=== PATIENT | female | born 1990 | race Caucasian/White ===

== ENCOUNTER → 2017-04-18 | Outpatient (CLI) | payer OTHER ==
--- NOTE | 2017-04-18 10:08 | USB ---
Reason for exam: clinical finding. History: Family history of breast cancer in maternal grandmother. Benign US LT VAD breast biopsy of the left breast, December 06, 2011. Benign US LT VAD breast biopsy of the left breast, December 06, 2011. Indicated problem(s): lump or thickening in the right breast. Physical Findings: Nurse did not find any significant physical abnormalities on exam. US Breast RT Right breast ultrasound includes all four quadrants, the retroareolar region and axilla. Finding demonstrates a 0.6 x 0.3 x 0.6cm oval, cystic lesion at 11 o'clock. Overall fibrocystic changes. These results were verbally communicated with the patient and result sheet given to the patient on 04/18/17. ASSESSMENT: Benign, BI-RAD 2 RECOMMENDATION: Clinical management. Manage patient on a clinical basis.
== END | disposition home or self-care (01) ==
LOC: RADUSWWP 08:47
PROVIDERS: ATTEND Family Medicine
DX: Z01.419 Encounter for gynecological examination (general) (routine) without abnormal findings (principal); N63.11 Unspecified lump in the right breast, upper outer quadrant

== ENCOUNTER → 2018-06-17 | Outpatient (CLI) | payer MEDICAID ==
--- NOTE | 2018-06-17 11:13 | MM ---
Reason for exam: clinical finding. History: Patient is nulliparous. Family history of breast cancer in maternal grandmother at age 65. Benign US LT VAD breast biopsy of the left breast, December 06, 2011. Benign US LT VAD breast biopsy of the left breast, December 06, 2011. Taking hormonal contraceptives beginning at age 14. Physical Findings: Nurse did not find any significant physical abnormalities on exam. MG 3D Diag Mammo W/Cad MONA Bilateral CC and MLO view(s) were taken. XCCL view(s) were taken of the left breast. Prior study comparison: April 18, 2017, right breast US breast RT. March 18, 2014, right breast US breast RT. The breast tissue is heterogeneously dense. This may lower the sensitivity of mammography. No suspicious abnormality. Right post biopsy change lower inner quadrant at middle depth from excisional biopsy. These results were verbally communicated with the patient and result sheet given to the patient on 06/17/18. ASSESSMENT: Benign, BI-RAD 2 RECOMMENDATION: Routine screening mammogram of both breasts at age 39. (or sooner if clinically indicated)
--- NOTE | 2018-06-17 11:16 | USB ---
Reason for exam: clinical finding. History: Patient is nulliparous. Family history of breast cancer in maternal grandmother at age 65. Benign US LT VAD breast biopsy of the left breast, December 06, 2011. Benign US LT VAD breast biopsy of the left breast, December 06, 2011. Taking hormonal contraceptives beginning at age 14. US Breast RT Right complete breast ultrasound includes all four quadrants, the retroareolar region and axilla. Finding demonstrates a 5 x 3 x 5mm oval lesion too small to characterize at 12 o'clock although cystic with increased through transmission, a 4 x 2 x 4mm oval, cystic lesion at 2 o'clock, a 5 x 3 x 5mm oval, mixed lesion at 11 o'clock, complicated cyst, and a 5 x 2 x 4mm oval, mixed lesion at 11 o'clock, complicated cyst. These results were verbally communicated with the patient and result sheet given to the patient on 06/17/18. ASSESSMENT: Benign, BI-RAD 2 RECOMMENDATION: Routine screening mammogram of both breasts at age 39. (or sooner if clinically indicated)
== END | disposition home or self-care (01) ==
LOC: RADMAMWWP 07:34
PROVIDERS: ATTEND Family Medicine
DX: N64.4 Mastodynia (principal); N63.10 Unspecified lump in the right breast, unspecified quadrant
CPT/HCPCS: 77062; 77066

== ENCOUNTER → 2020-04-17 | Outpatient (CLI) | payer MEDICAID | END | disposition home or self-care (01) | LOC: LABMAIN 01:08 | PROVIDERS: ATTEND Emergency Medicine | DX: Z53.9 Procedure and treatment not carried out, unspecified reason (principal) ==

== ENCOUNTER → 2020-07-23 | Outpatient (CLI) | payer MEDICAID | END | disposition home or self-care (01) | LOC: LABMAIN 23:59 | PROVIDERS: ATTEND Emergency Medicine | DX: Z20.822 Contact with and (suspected) exposure to COVID-19 (principal) | CPT/HCPCS: 87635 ==

== ENCOUNTER 2020-08-07 17:32 | Emergency (ER) | payer MEDICAID ==
[2020-08-07] MEDS ORDERED: SODIUM CHLORIDE 0.9% 2,000 ML IV STA (18:20)
[2020-08-07] MEDS ORDERED: ONDANSETRON 4 MG/2 ML VIAL IVP STA (18:20)
[2020-08-07] MEDS ORDERED: METOCLOPRAMIDE 5 MG/ML 2 ML VIAL IVP STA (18:25)
[2020-08-07] MEDS ORDERED: SCOPOLAMINE 1.5MG/72HR PATCH TRANSDERM STA (18:29)
[2020-08-07 18:45] LABS: Basophils # (A) 0.2 k/uL (0-0.2); Basophils % (A) 1 %; Eosinophils # (A) 0.2 k/uL (0-0.7); Eosinophils % (A) 1 %; HCT 47.8 % (34.0-46.0); HGB 16.8 gm/dL (11.4-16.0); Lymphocytes # (A) 1.9 k/uL (1.0-4.8); Lymphocytes % (A) 15 %; MCHC 35.1 g/dL (31.0-37.0); MCV 88.3 fL (80.0-100.0); Monocytes # (A) 1.1 k/uL (0-1.0); Monocytes % (A) 9 %; Neutrophils # (A) 9.1 k/uL (1.3-7.7); Neutrophils % (A) 71 %; Platelet Count 298 k/uL (150-450); RBC 5.41 m/uL (3.80-5.40); RDW 11.9 % (11.5-15.5); WBC 12.8 k/uL (3.8-10.6)
[2020-08-07 18:53] LABS: Calcium 10.5 mg/dL (8.4-10.2); Potassium 3.8 mmol/L (3.5-5.1); Total Bilirubin 0.6 mg/dL (0.2-1.3); Total Protein 10.1 g/dL (6.3-8.2)
--- NOTE | 2020-08-07 18:53 | ED ---
Nausea/Vomiting/Diarrhea HPI - General Chief complaint: Nausea/Vomiting/Diarrhea Stated complaint: nausea/vomiting Time Seen by Provider: 08/07/20 18:19 Source: patient Mode of arrival: ambulatory Limitations: no limitations - History of Present Illness Initial comments: This patient is a 29-year-old woman who presents to be evaluated for suspected dehydration. She states she has been having intractable nausea and vomiting for the past 4-5 days. She states that she was diagnosed with covid infection approximately 9 days ago. She is also having fever and chills, headache, myalgias and a little bit of cough. No dyspnea. The patient previously has had a scopolamine which seems to help the symptoms. She also tried ondansetron which did not seem to help. There has been no hematemesis or coffee-ground vomiting. No bloody or dark tarry stools. She notes she is urinating less frequently and it seems a little more concentrated. MD complaint: nausea, vomiting -: days(s) Description of Vomiting: food contents Associated Abdominal Pain: No Radiation: none Severity scale (1-10): 0 Consistency: constant Improves with: none Worsens with: none Associated Symptoms: myalgias, fever/chills, headaches, malaise, nausea/vomiting - Related Data Previous Rx's Medication Instructions Recorded Lidocaine Viscous [Xylocaine 5 ml PO Q3HR PRN #100 ml 08/07/20 Viscous 2%] Promethazine [Phenergan] 25 mg PO Q6HR PRN #12 tablet 08/07/20 Scopolamine 1.5MG/72Hr Patch 1 patch TRANSDERM Q72H #6 patch 08/07/20 [TransDerm Scop] Allergies Allergy/AdvReac Type Severity Reaction Status Date / Time No Known Allergies Allergy Verified 08/07/20 17:39 Review of Systems ROS Statement: Those systems with pertinent positive or pertinent negative responses have been documented in the HPI. ROS Other: All systems not noted in ROS Statement are negative. Constitutional: Denies: fever, chills Respiratory: Denies: cough, dyspnea Cardiovascular: Denies: chest pain, palpitations, edema, syncope Endocrine: Reports: fatigue Gastrointestinal: Reports: nausea, vomiting. Denies: abdominal pain, diarrhea, constipation, hematemesis, melena, hematochezia Genitourinary: Denies: dysuria, hematuria Musculoskeletal: Reports: myalgia. Denies: back pain Skin: Denies: rash Neurological: Reports: headache. Denies: weakness, numbness, paresthesias Past Medical History Past Medical History: No Reported History History of Any Multi-Drug Resistant Organisms: None Reported Additional Past Surgical History / Comment(s): RIGHT LUMPECTOMY Past Psychological History: No Psychological Hx Reported Smoking Status: Never smoker Past Alcohol Use History: Rare Past Drug Use History: None Reported General Exam Limitations: no limitations General appearance: alert, in no apparent distress Head exam: Present: atraumatic, normocephalic Eye exam: Present: normal appearance. Absent: scleral icterus, conjunctival injection ENT exam: Present: mucous membranes dry Neck exam: Present: normal inspection Respiratory exam: Present: normal lung sounds bilaterally. Absent: respiratory distress, wheezes, rales, rhonchi, stridor Cardiovascular Exam: Present: normal rhythm, tachycardia, normal heart sounds. Absent: systolic murmur, diastolic murmur, rubs, gallop GI/Abdominal exam: Present: soft. Absent: distended, tenderness, guarding, rebound, rigid, mass Extremities exam: Present: normal inspection, normal capillary refill. Absent: pedal edema, calf tenderness Back exam: Present: normal inspection. Absent: CVA tenderness (R), CVA tenderness (L) Neurological exam: Present: alert Skin exam: Present: warm, dry, intact, normal color. Absent: rash Course Vital Signs 08/07/20 08/07/20 08/07/20 17:37 18:43 19:18 Temperature 98.8 F Pulse Rate 148 H 125 H 114 H Respiratory 26 H 22 20 Rate Blood Pressure 114/84 122/92 109/71 O2 Sat by Pulse 95 95 97 Oximetry 08/07/20 08/07/20 08/07/20 20:45 21:36 22:20 Temperature 100.5 F H 100.8 F H Pulse Rate 111 H 113 H 106 H Respiratory 20 18 Rate Blood Pressure 99/76 107/69 O2 Sat by Pulse 97 Oximetry Medical Decision Making - Lab Data Result diagrams: 08/07/20 18:34 08/07/20 18:34 Lab Results 08/07/20 08/07/20 Range/Units 18:34 18:34 WBC 12.8 H (3.8-10.6) k/uL RBC 5.41 H (3.80-5.40) m/uL Hgb 16.8 H (11.4-16.0) gm/dL Hct 47.8 H (34.0-46.0) % MCV 88.3 (80.0-100.0) fL MCH 31.0 (25.0-35.0) pg MCHC 35.1 (31.0-37.0) g/dL RDW 11.9 (11.5-15.5) % Plt Count 298 (150-450) k/uL MPV 8.0 Neutrophils % 71 % Lymphocytes % 15 % Monocytes % 9 % Eosinophils % 1 % Basophils % 1 % Neutrophils # 9.1 H (1.3-7.7) k/uL Lymphocytes # 1.9 (1.0-4.8) k/uL Monocytes # 1.1 H (0-1.0) k/uL Eosinophils # 0.2 (0-0.7) k/uL Basophils # 0.2 (0-0.2) k/uL Sodium 137 (137-145) mmol/L Potassium 3.8 (3.5-5.1) mmol/L Chloride 96 L (98-107) mmol/L Carbon Dioxide 20 L (22-30) mmol/L Anion Gap 21 mmol/L BUN 50 H (7-17) mg/dL Creatinine 2.69 H (0.52-1.04) mg/dL Est GFR (CKD-EPI)AfAm 26 (>60 ml/min/1.73 sqM) Est GFR (CKD-EPI)NonAf 23 (>60 ml/min/1.73 sqM) Glucose 111 H (74-99) mg/dL Calcium 10.5 H (8.4-10.2) mg/dL Total Bilirubin 0.6 (0.2-1.3) mg/dL AST 21 (14-36) U/L ALT 15 (4-34) U/L Alkaline Phosphatase 85 (38-126) U/L Total Protein 10.1 H (6.3-8.2) g/dL Albumin 5.0 (3.5-5.0) g/dL Amylase 118 H (30-110) U/L Lipase 607 H (23-300) U/L - EKG Data -: EKG Interpreted by Oh EKG shows normal: sinus rhythm, axis (Normal), intervals (Normal), QRS complexes (Normal), ST-T waves (Normal) Rate: tachycardia (Rate 106 bpm) Interpretation: normal EKG Disposition Clinical Impression: COVID-19, Vomiting and diarrhea, Dehydration, Acute kidney injury Disposition: HOME SELF-CARE Condition: Fair Instructions (If sedation given, give patient instructions): Coronavirus Disease 2019 (COVID-19), Acute Kidney Injury (DC), Acute Nausea and Vomiting (ED) Prescriptions: Promethazine [Phenergan] 25 mg PO Q6HR PRN #12 tablet PRN Reason: Vomiting Scopolamine 1.5MG/72Hr Patch [TransDerm Scop] 1 patch TRANSDERM Q72H #6 patch Lidocaine Viscous [Xylocaine Viscous 2%] 5 ml PO Q3HR PRN #100 ml PRN Reason: Sore Throat Is patient prescribed a controlled substance at d/c from ED?: No Referrals: None,Stated [Primary Care Provider] - 1-2 days
--- NOTE | 2020-08-07 19:08 | XR ---
EXAMINATION TYPE: XR chest 2V DATE OF EXAM: 08/07/2020 COMPARISON: NONE HISTORY: Nausea and vomiting TECHNIQUE: 2 views FINDINGS: There is airspace infiltrate posteriorly in both lower lobes. Upper lobes appear clear of i nfiltrate. Heart and mediastinum are normal. There are no hilar masses. There are chest leads. There is no pleural effusion. IMPRESSION: There is some patchy bilateral lower lobe pneumonia.
[2020-08-07] MEDS ORDERED: SODIUM CHLORIDE 0.9% 1,000 ML IV ONE (20:02)
[2020-08-07] MEDS ORDERED: ACETAMINOPHEN TAB 325 MG TAB PO STA (20:25)
[2020-08-07] MEDS ORDERED: MAG HYDROX/AL HYDROX/SIMETH 30 ML, HYOSCYAMINE ELIXIR 10 ML, LIDOCAINE VISCOUS 2% 10 ML PO STA ×3 (20:37)
[2020-08-07 21:37] VITALS: RESP 18
[2020-08-07 23:03] VITALS: BP 109/70; PULSE 96; TEMP 100.2
== END 2020-08-07 23:36 | disposition home or self-care (01) ==
LOC: EC 17:32
DX: U07.1 COVID-19 (principal); E86.0 Dehydration; N17.9 Acute kidney failure, unspecified
CPT/HCPCS: 36415; 93005; 80053; 82150; 83690; 85025; 71046; 99284; 96374; 96375; 96361 ×5; J2765

== ENCOUNTER → 2021-02-26 | Outpatient (CLI) | payer MEDICAID | END | disposition home or self-care (01) | LOC: LABMAIN 06:01 | PROVIDERS: ATTEND Emergency Medicine | DX: U07.1 COVID-19 (principal) | CPT/HCPCS: 36415; 86769 ==

== ENCOUNTER → 2021-03-30 | Outpatient (CLI) | payer MEDICAID | END | disposition home or self-care (01) | LOC: LABMAIN 21:46 | PROVIDERS: ATTEND Emergency Medicine | DX: Z20.822 Contact with and (suspected) exposure to COVID-19 (principal); R05.9 Cough, unspecified | CPT/HCPCS: 87635 ==

== ENCOUNTER → 2021-03-31 | Outpatient (CLI) | payer MEDICAID, OTHER | END | disposition home or self-care (01) | LOC: LABWHC1 21:30 | PROVIDERS: ATTEND Emergency Medicine | DX: Z20.822 Contact with and (suspected) exposure to COVID-19 (principal) | CPT/HCPCS: 87635 ==

== ENCOUNTER → 2021-05-10 | Outpatient (CLI) | payer MEDICAID, OTHER | END | disposition home or self-care (01) | LOC: LABWHC1 10:48 | PROVIDERS: ATTEND Emergency Medicine | DX: Z20.822 Contact with and (suspected) exposure to COVID-19 (principal) | CPT/HCPCS: 87635 ==

== ENCOUNTER 2021-09-24 06:54 | Emergency (ER) | payer MEDICAID ==
[2021-09-24 07:07] VITALS: RESP 18
[2021-09-24] MEDS ORDERED: ONDANSETRON 4 MG/2 ML VIAL IVP STA (07:23)
[2021-09-24] MEDS ORDERED: SODIUM CHLORIDE 0.9% 1,000 ML IV ONE (07:26)
--- NOTE | 2021-09-24 07:33 | ED ---
General Adult HPI - General Chief complaint: Abdominal Pain Stated complaint: Abdominal pain Time Seen by Provider: 09/24/21 06:58 Source: patient Mode of arrival: ambulatory Limitations: no limitations - History of Present Illness Initial comments: Dictation was produced using [employer] dictation software. please excuse any grammatical, word or spelling errors. 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 Patient states that over the last 2-3 weeks she's been having these bouts of right upper quadrant attacks. Patient denies any history of surgery. No history of cholecystectomy. Patient states that she would have these episodes that would be severe causing her to double over and have bouts of nonbilious nonbloody emesis. Patient states the pain is localized right upper quadrant. Nonradiating. Patient denies any constitutional symptoms however in triage she did have a 99.0. She states that these episodes last for approximately 6 hours at the time. At the bedside currently she is asymptomatic. Patient's symptoms are not associated with food. The ROS documented in this emergency department record has been reviewed and confirmed by me. Those systems with pertinent positive or negative responses have been documented in the HPI. All other systems are other negative and/or noncontributory. PHYSICAL EXAM: General Impression: Alert and oriented x3, not in acute distress HEENT: Normocephalic atraumatic, extra-ocular movements intact, pupils equal and reactive to light bilaterally, mucous membranes moist. Cardiovascular: Heart regular rate and rhythm Chest: Able to complete full sentences, no retractions, no tachypnea Abdomen: abdomen soft, non-tender, negative Snyder sign, non-distended, no organomegaly Musculoskeletal: Pulses present and equal in all extremities, no peripheral edema Motor: no focal deficits noted Neurological: CN II-XII grossly intact, no focal motor or sensory deficits noted Skin: Intact with no visualized rashes Psych: Normal affect and mood ED course: 30-year-old female presents to the emergency department for right upper quadrant episodic pain stated with nausea and vomiting. She would have these episodes that last for several hours however she would experience several hours of no symptoms in between. Patient denies . Denies any urinary symptoms. Laboratory evaluation obtained. CBC shows leukocytosis of 18.0. Metabolic panel shows findings that are within acceptable limits. AST is 202, ALT is 92. Abdominal ultrasound shows cholelithiasis, gallbladder distention wall thickening. Sonographic Snyder's is negative. Mild hepatomegaly. Patient reevaluated at bedside found to be in stable medical condition. Patient reevaluated at 8:20 AM: She denies any symptoms currently. Patient is afebrile. Repeat abdominal exam is unremarkable. Patient observed in the emergency department for 2 hours in 2 minutes. Patient is asymptomatic upon reevaluation at 9:00 AM. Patient will be discharged with strict return precautions. She is advised to contact a general surgeon to have outpatient management of cholelithiasis. - Related Data Previous Rx's Medication Instructions Recorded Lidocaine Viscous [Xylocaine 5 ml PO Q3HR PRN #100 ml 08/07/20 Viscous 2%] Promethazine [Phenergan] 25 mg PO Q6HR PRN #12 tablet 08/07/20 Scopolamine 1 mg/72 Hr Patch 1 patch TRANSDERM Q72H #6 patch 08/07/20 [TransDerm Scop] HYDROcodone/APAP 5-325MG [Irma 1 tab PO Q6HR PRN 3 Days #12 tab 09/24/21 5-325] Promethazine [Phenergan] 25 mg PO Q6H PRN 3 Days #24 tablet 09/24/21 Allergies Allergy/AdvReac Type Severity Reaction Status Date / Time No Known Allergies Allergy Verified 09/24/21 07:07 Review of Systems ROS Statement: Those systems with pertinent positive or pertinent negative responses have been documented in the HPI. ROS Other: All systems not noted in ROS Statement are negative. Past Medical History Past Medical History: No Reported History History of Any Multi-Drug Resistant Organisms: None Reported Additional Past Surgical History / Comment(s): RIGHT LUMPECTOMY Past Psychological History: No Psychological Hx Reported Smoking Status: Never smoker Past Alcohol Use History: Rare Past Drug Use History: None Reported General Exam Limitations: no limitations Course Vital Signs 09/24/21 07:05 Temperature 99.0 F Pulse Rate 112 H Respiratory 18 Rate Blood Pressure 122/82 O2 Sat by Pulse 98 Oximetry Medical Decision Making - Lab Data Result diagrams: 09/24/21 07:28 09/24/21 07:28 Lab Results 09/24/21 09/24/21 Range/Units 07:28 07:28 WBC 18.0 H (3.8-10.6) k/uL RBC 4.35 (3.80-5.40) m/uL Hgb 13.4 (11.4-16.0) gm/dL Hct 40.0 (34.0-46.0) % MCV 92.0 (80.0-100.0) fL MCH 30.8 (25.0-35.0) pg MCHC 33.5 (31.0-37.0) g/dL RDW 12.8 (11.5-15.5) % Plt Count 385 (150-450) k/uL MPV 7.1 Neutrophils % 75 % Lymphocytes % 17 % Monocytes % 6 % Eosinophils % 0 % Basophils % 0 % Neutrophils # 13.6 H (1.3-7.7) k/uL Lymphocytes # 3.0 (1.0-4.8) k/uL Monocytes # 1.0 (0-1.0) k/uL Eosinophils # 0.1 (0-0.7) k/uL Basophils # 0.1 (0-0.2) k/uL Sodium 139 (137-145) mmol/L Potassium 4.2 (3.5-5.1) mmol/L Chloride 106 (98-107) mmol/L Carbon Dioxide 25 (22-30) mmol/L Anion Gap 8 mmol/L BUN 13 (7-17) mg/dL Creatinine 0.77 (0.52-1.04) mg/dL Est GFR (CKD-EPI)AfAm >90 (>60 ml/min/1.73 sqM) Est GFR (CKD-EPI)NonAf >90 (>60 ml/min/1.73 sqM) Glucose 90 (74-99) mg/dL Calcium 9.3 (8.4-10.2) mg/dL Total Bilirubin 1.1 (0.2-1.3) mg/dL Conjugated Bilirubin 0.0 (0.0-0.3) mg/dL Unconjugated Bilirubin 0.7 (0.0-1.1) mg/dL Delta Bilirubin 0.4 H (0.0-0.2) mg/dL AST 202 H (14-36) U/L ALT 92 H (4-34) U/L Alkaline Phosphatase 60 (38-126) U/L Total Protein 8.1 (6.3-8.2) g/dL Albumin 4.6 (3.5-5.0) g/dL Lipase 152 (23-300) U/L Disposition Clinical Impression: Symptomatic cholelithiasis Disposition: HOME SELF-CARE Condition: Fair Instructions (If sedation given, give patient instructions): Gallstones (ED) Additional Instructions: Seek immediate medical attention with worsening pain especially if is associated with fever. There is a chance that your symptomatology could reflect acute cholecystitis. Prescriptions: HYDROcodone/APAP 5-325MG [Irma 5-325] 1 tab PO Q6HR PRN 3 Days #12 tab PRN Reason: Severe Pain Promethazine [Phenergan] 25 mg PO Q6H PRN 3 Days #24 tablet PRN Reason: Nausea And Vomiting Is patient prescribed a controlled substance at d/c from ED?: Yes If prescribed controlled substance>3 days was MAPS reviewed?: Prescribed <3 Days Referrals: Brown Garcia MD [Medical Doctor] - 1-2 days
[2021-09-24 07:50] LABS: ALT 92 U/L (4-34); AST 202 U/L (14-36); African American GFR (CKD) >90 (>60 ml/min/1.73 sqM); Albumin 4.6 g/dL (3.5-5.0); Alkaline Phosphatase 60 U/L (38-126); Anion Gap 8 mmol/L; Bilirubin, Delta 0.4 mg/dL (0.0-0.2); Bilirubin,Unconjugated 0.7 mg/dL (0.0-1.1); Blood Urea Nitrogen 13 mg/dL (7-17); Calcium 9.3 mg/dL (8.4-10.2); Carbon Dioxide 25 mmol/L (22-30); Chloride 106 mmol/L (98-107); Glucose 90 mg/dL (74-99); Lipase 152 U/L (23-300); Non-African American GFR(CKD) >90 (>60 ml/min/1.73 sqM); Potassium 4.2 mmol/L (3.5-5.1); Sodium 139 mmol/L (137-145); Total Bilirubin 1.1 mg/dL (0.2-1.3); Total Protein 8.1 g/dL (6.3-8.2)
[2021-09-24 08:00] LABS: Basophils # (A) 0.1 k/uL (0-0.2); Basophils % (A) 0 %; Eosinophils # (A) 0.1 k/uL (0-0.7); Eosinophils % (A) 0 %; HGB 13.4 gm/dL (11.4-16.0); Lymphocytes % (A) 17 %; MCH 30.8 pg (25.0-35.0); MCHC 33.5 g/dL (31.0-37.0); Mean Platelet Volume 7.1; Monocytes % (A) 6 %; Neutrophils # (A) 13.6 k/uL (1.3-7.7); Neutrophils % (A) 75 %; Platelet Count 385 k/uL (150-450); RBC 4.35 m/uL (3.80-5.40); RDW 12.8 % (11.5-15.5)
--- NOTE | 2021-09-24 08:15 | US ---
EXAMINATION TYPE: US abdomen limited DATE OF EXAM: 09/24/2021 COMPARISON: NONE CLINICAL HISTORY: ruq pain. epigastric pain x 2 weeks with nausea and vomiting. EXAM MEASUREMENTS: Liver Length: 18.2 cm Gallbladder Wall: 0.14 cm CBD: 0.4 cm Right Kidney: 11.3 x 4.7 x 4.7 cm Pancreas: Obscured by bowel gas Liver: Mildly enlarged. No focal hepatic mass. Gallbladder: Multiple mobile stones were seen. Largest measuring 1.3 x 1.4 x 1.0 cm Evidence for sonographic Snyder's sign: No CBD: 5 mm Right Kidney: No cortical mass or thinning. No evidence of right renal calculi or hydronephrosis. No perinephric fluid collections. IMPRESSION: 1. Cholelithiasis, gallbladder distention, wall thickening or extrahepatic biliary ductal dilatation. Sonographic Snyder's sign is negative. 2. Mild hepatomegaly
[2021-09-24 09:04] VITALS: BP 134/86; PULSE 86; TEMP 98.7
== END 2021-09-24 09:03 | disposition home or self-care (01) ==
LOC: EC 06:54
DX: K80.20 Calculus of gallbladder without cholecystitis without obstruction (principal)
CPT/HCPCS: 36415; 80053; 82248; 83690; 85025; 76705; 99284; 96374; 96361; J2405

== ENCOUNTER → 2021-09-26 | Outpatient (CLI) | payer MEDICAID ==
[2021-09-26 22:34] LABS: ALT 49 U/L (8-44); AST 22 U/L (13-35); African American GFR (CKD) 116.3 (60.0-200.0); Albumin 4.5 g/dL (3.8-4.9); Albumin/Globulin Ratio 1.55 (1.60-3.17); Alkaline Phosphatase 59 U/L (41-126); BUN/Creat Ratio 16.03 Ratio (12.00-20.00); Blood Urea Nitrogen 12.6 mg/dL (9.0-27.0); Calcium 9.4 mg/dL (8.7-10.3); Carbon Dioxide 23.6 mmol/L (20.0-27.5); Chloride 103 mmol/L (96-109); Globulin 2.9 g/dL (1.6-3.3); Glucose 87 mg/dL (70-110); Non-African American GFR(CKD) 100.4 (60.0-200.0); Sodium 138 mmol/L (135-145); Total Bilirubin <0.15 mg/dL (0.30-1.20); Total Protein 7.4 g/dL (6.2-8.2)
[2021-09-26 22:44] LABS: Basophils # (A) 0.05 X 10*3/uL (0.00-0.10); Basophils % (A) 0.6 %; Eosinophils # (A) 0.22 X 10*3/uL (0.04-0.35); Eosinophils % (A) 2.6 %; HCT 38.2 % (37.2-46.3); Immature Grans, Automated 0.2 %; Lymphocytes # (A) 2.58 X 10*3/uL (0.90-5.00); MCH 29.1 pg (27.0-32.0); MCHC 31.4 g/dL (32.0-37.0); MCV 92.5 fL (80.0-97.0); Mean Platelet Volume 9.8 fL (9.5-12.2); Monocytes # (A) 0.55 X 10*3/uL (0.20-1.00); Monocytes % (A) 6.4 %; NRBC Per 100 WBC 0 /100 WBCS (0.0-0.0); Neutrophils # (A) 5.18 X 10*3/uL (1.80-7.70); Neutrophils % (A) 60.2 %; Platelet Count 338 X 10*3/uL (140-440); RBC 4.13 X 10*6/uL (4.10-5.20); RDW 12.8 % (11.5-14.5)
== END | disposition home or self-care (01) ==
LOC: LABMAIN 19:32
PROVIDERS: ATTEND Emergency Medicine
DX: D72.829 Elevated white blood cell count, unspecified (principal)
CPT/HCPCS: 80053; 85025

== ENCOUNTER → 2021-10-07 | Day surgery (SDC) | payer MEDICAID ==
[~2021-10-07] MED LIST: ACETAMINOPHEN TAB 325 MG TAB PO SCH; ACETAMINOPHEN TAB 500 MG TAB PO PRN; BUPIVACAIN-EPI 0.25%-1:200,000 30 ML VIAL SQ ONE; DEXAMETHASONE SOD PHOSPHATE 4 MG/ML 1 ML VIAL IV ONE; GLYCOPYRROLATE 0.2 MG/ML 2 ML VIAL ONE; HEPARIN SODIUM,PORCINE/PF 5,000 UNIT/0.5 ML SYRINGE SQ PRN; HYDROcodone/APAP 5-325MG 1 EACH TAB ONE; HYDROcodone/APAP 5-325MG 1 EACH TAB PO ONE; HYDROmorphone (PF) 1 MG/ML ONE; IBUPROFEN 600 MG TAB PO SCH; KETOROLAC 15 MG/ML 1 ML VIAL ONE; LACTATED RINGERS 1,000 ML IV ONE; LACTATED RINGERS 1,000 ML IV SCH; LIDOCAINE 2% INJ 20 MG/ML (2 ML VIAL) ONE; MIDAZOLAM 2 MG/2 ML VIAL IV PRN; MIDAZOLAM 2 MG/2 ML VIAL ONE; NEOSTIGMINE 1 MG/ML 10 ML VIAL ONE; ONDANSETRON 4 MG/2 ML VIAL IVP ONE; ONDANSETRON 4 MG/2 ML VIAL ONE; PROPOFOL 10 MG/ML 20 ML VIAL IV ONE; ROCURONIUM 10 MG/ML (5 ML VIAL) IV ONE; SCOPOLAMINE 1 MG/72 HR PATCH TRANSDERM ONE; SUCCINYLCHOLINE CHLORIDE 100 MG/5 ML SYR IV ONE; fentaNYL (PF) 50 MCG/ML 2 ML AMP ONE
--- NOTE | 2021-10-07 10:31 | P.OP ---
Date of Procedure: 10/07/21 Procedure(s) Performed: PREOPERATIVE DIAGNOSIS: Chronic cholecystitis POSTOPERATIVE DIAGNOSIS: Same PROCEDURE: Laparoscopic cholecystectomy SURGEON: Jose EBL: 10 mL ANESTHESIA: Gen. COMPLICATIONS: None OPERATIVE PROCEDURE: The patient was brought and placed on the operating room table in the supine position. The patient was placed under general anesthesia at that time. The abdomen was prepped and draped in the usual sterile fashion. A small vertical infraumbilical incision was made. The fascia was grasped with the Violeta forceps. The fascia was retracted anteriorly. The Veress needle was advanced into the peritoneal cavity. The saline drop test was normal. Insufflation took place up to 15 mmHg. A 5 mm optical trocar was advanced and the peritoneal cavity. 2 additional 5 mm trochars were placed in the right upper quadrant under direct visualization. A 12 mm trocar was advanced into the epigastric incision site. The gallbladder had evidence of chronic inflammation with a thickened wall. It was adherent to the surrounding pericolonic fat which was lysed using electrocautery. The gallbladder was then retracted superiorly and laterally. The peritoneum overlying the infundibulum was bluntly dissected. The patient's cystic duct was visualized. The junction between the cystic duct common and hepatic duct was identified. The critical view of safety was achieved after blunt dissection. The cystic duct was then divided after placement of 3 12 mm clips on the patient's side and one on the specimen side. The cystic artery was identified and clipped as well. The patient had multiple small vessels along the gallbladder fossa that were clipped as well. The gallbladder was then removed from the liver bed using electrocautery. The gallbladder was then removed from the epigastric trocar site with an Endo Catch bag. The epigastric trocar incision required lengthening in order for the specimen to be removed. The gallbladder fossa was irrigated with saline. There was no evidence of any bleeding or biliary drainage seen. The fascia at the 12 millimeter site was closed using Rancho-Kelsi 0 Vicryl and #1 Vicryl sutures. The trochars were then removed. The skin at all 4 sites was closed using a 4-0 Monocryl stitch. Skin glue was utilized on the incision sites. At the end of this procedure the sponge and needle counts were correct. DISPOSITION: Stable to the recovery room
[2021-10-07 10:34] VITALS: TEMP 97.3
[2021-10-07] MEDS: HYDROmorphone 0.5 MG/0.5 ML SYRINGE IVP PRN ×2 (10:50→11:20)
[2021-10-07 12:11] VITALS: RESP 16
[2021-10-07 13:35] VITALS: BP 133/89; PULSE 70
== END ==
LOC: OR 07:13
PROVIDERS: ATTEND Surgery
DX: K80.10 Calculus of gallbladder with chronic cholecystitis without obstruction (principal)
CPT/HCPCS: 81025; 88304; 47562; J2250; J1100; J2710; J0690; J2405; J3010; J1170 ×2; J1885; J0330; J2704; J1790; J1644; J2001

== ENCOUNTER 2024-06-07 12:33 | Emergency (ER) | payer MEDICAID ==
[2024-06-07] MEDS: HYDROmorphone 1 MG/ML 1 ML SYRINGE IVP STA ×2 (13:00→14:18)
[2024-06-07] MEDS: KETOROLAC 15 MG/ML 1 ML VIAL IVP STA (13:02)
[2024-06-07] MEDS: methylPREDNISolone SOD SUCCI 125 MG/2 ML VIAL IM STA (13:03)
[2024-06-07] MEDS: LIDOCAINE 4% PATCH TOPICAL STA (13:04)
[2024-06-07 13:24] LABS: Basophils # (A) 0.1 k/uL (0-0.2); Basophils % (A) 0 %; Eosinophils # (A) 0.5 k/uL (0-0.7); Eosinophils % (A) 4 %; HCT 39.7 % (34.0-46.0); HGB 12.8 gm/dL (11.4-16.0); Lymphocytes # (A) 3.6 k/uL (1.0-4.8); Lymphocytes % (A) 27 %; MCH 30.2 pg (25.0-35.0); MCHC 32.2 g/dL (31.0-37.0); MCV 93.8 fL (80.0-100.0); Mean Platelet Volume 7.2; Monocytes # (A) 0.7 k/uL (0-1.0); Monocytes % (A) 6 %; Neutrophils # (A) 8.3 k/uL (1.3-7.7); Neutrophils % (A) 62 %; Platelet Count 419 k/uL (150-450); RBC 4.23 m/uL (3.80-5.40); RDW 13.2 % (11.5-15.5); WBC 13.3 k/uL (3.8-10.6)
[2024-06-07 13:28] LABS: Appearance,Urine Clear (Clear); Bacteria,Urine Occasional /hpf; Bilirubin,Urine Negative (Negative); Blood,Urine Negative (Negative); Color,Urine Light Yellow; Glucose,Urine (UA) Negative (Negative); Ketones,Urine Negative (Negative); Leukocyte Esterase,Urine Trace (Negative); Nitrite,Urine Negative (Negative); PH, Urine 6.5 (5.0-8.0); Protein,Urine Negative (Negative); RBC,Urine 2 /hpf (0-5); Specific Gravity,Urine 1.012 (1.001-1.035); Squamous Epithelial Cell,Urine <1 /hpf (0-4); Urobilinogen,Urine <2.0 mg/dL (<2.0); WBC,Urine 1 /hpf (0-5)
[2024-06-07 13:40] LABS: ALT 52 U/L (4-34); AST 37 U/L (14-36); African American GFR (CKD) >90 (>60 ml/min/1.73 sqM); Albumin 4.4 g/dL (3.5-5.0); Alkaline Phosphatase 48 U/L (38-126); Anion Gap 10 mmol/L; Blood Urea Nitrogen 16 mg/dL (7-17); Calcium 9.7 mg/dL (8.4-10.2); Carbon Dioxide 28 mmol/L (22-30); Chloride 100 mmol/L (98-107); Glucose 89 mg/dL (74-99); Non-African American GFR(CKD) >90 (>60 ml/min/1.73 sqM); Potassium 4.3 mmol/L (3.5-5.1); Sodium 138 mmol/L (137-145); Total Bilirubin 0.4 mg/dL (0.2-1.3); Total Protein 7.4 g/dL (6.3-8.2)
[2024-06-07 13:49] VITALS: RESP 16
--- NOTE | 2024-06-07 14:03 | CT ---
EXAMINATION TYPE: CT abdomen pelvis wo con DATE OF EXAM: 06/07/2024 1:46 PM COMPARISON: None. CLINICAL INDICATION: Female, 33 years old with history of intractable flank pain, no injury, LEFT FLA NK PAIN TECHNIQUE: Axial images were obtained from above the diaphragm to the pubic rami in the axial plane a t 5 mm thick sections. Reconstructed images are reviewed on the computer in the coronal plane. CONTRAST: mL of . Study performed without Oral Contrast DLP: 1419.2 mGycm, Automated exposure control for dose reduction was used. FINDINGS: Limited CT sections are obtained the lung bases. The lung bases are clear. CT ABDOMEN: Liver: Normal Spleen: Normal Pancreas: Normal Adrenal glands: The adrenal glands are normal. Gallbladder: Surgically absent Kidneys: No masses are evident. No hydronephrosis is present. No hydroureter evident. No obstructing renal or ureteral stones. No cysts are present. No renal stones evident Aorta: Normal Inferior vena cava: Normal. CT PELVIS: Loops of bowel within the abdomen and pelvis are normal. This study is without oral contrast limi ting bowel evaluation. Cecum is in the left anterior abdomen Appendix: Normal as visualized. Urinary bladder: Normal. Genitourinary structures: Uterus and adnexa appear normal. Osseous structures: No suspicious lytic or sclerotic lesions. IMPRESSION: 1. No suspicious acute CT abdomen and pelvis abnormality. [facility], , 06/07/2024 2:01 PM
--- NOTE | 2024-06-07 14:09 | CT ---
EXAMINATION TYPE: CT lumbar spine wo con DATE OF EXAM: 06/07/2024 1:47 PM COMPARISON: None. CLINICAL INDICATION: Female, 33 years old with history of intractable flank pain, no injury, BACK LUCHO N TECHNIQUE: Contrast used: mL of , (none if empty) Oral contrast used: (none if empty) Axial images at 5 mm thick sections. Reconstructed images in the coronal and sagittal planes. FINDINGS: There is some mild disc bulging at L4-5 with mild anterior thecal sac flattening. No AP spinal canal stenosis is present. Some mild facet hypertrophy is present. L5-S1: Mild disc bulge is present. No spinal canal stenosis is evident. There is mild to moderate lef t foraminal narrowing at L5-S1. Vertebral body alignment is preserved. Disc heights appear preserved. Vertebral body heights are pres erved. No spinal canal stenosis is evident. Neural foramen are otherwise patent. No additional focal disc he rniation or significant disc bulge is evident. IMPRESSION: 1. MILD DISC BULGE L4-5 AND L5-S1 WITH MILD ANTERIOR THECAL SAC CONTACT. 2. MILD TO MODERATE LEFT FORAMINAL NARROWING AT L5-S1. CORRELATE WITH RADICULAR SYMPTOMS. [facility], , 06/07/2024 2:07 PM
--- NOTE | 2024-06-07 15:08 | ED ---
General Adult HPI - General Chief complaint: Back Pain/Injury Stated complaint: Back pain Time Seen by Provider: 06/07/24 12:38 Source: patient Mode of arrival: ambulatory - History of Present Illness Initial comments: 33-year-old female who presents emergency department reporting back pain. Patient does have a history of some back pain but states that the pain she is experiencing right now does not feel typical to her. She states the pain is uncontrolled and she cannot get comfortable in any position. The pain does not seem to be related to position. She denies any injuries. Pain is located in the flanks. She denies dysuria, hematuria or difficulty voiding. No history of kidney stones. No abnormal vaginal bleeding or discharge. No diarrhea, constipation, black or bloody stools. She saw her primary care office that a put her on Motrin and steroids. States that she finished the steroids and the pain is so significant now. She denies any saddle anesthesia. No bowel or bladder incontinence. She has never had any dedicated imaging of her spine. No fevers. No history of intravenous drug use. Denies concern for . No other alleviating, precipitating modifying factors - Related Data Home Medications Medication Instructions Recorded Confirmed Etonogestrel-Ethinyl 1 insert VAGINAL QMONTHLY 10/05/21 10/07/21 Previous Rx's Medication Instructions Recorded HYDROcodone/APAP 5-325MG [Spurger 1 tab PO Q6HR PRN 3 Days #12 tab 09/24/21 5-325] Promethazine [Phenergan] 25 mg PO Q6H PRN 3 Days #24 tablet 09/24/21 Amoxic-Pot Clav 875-125Mg 1 tab PO Q12HR #20 tab 02/09/22 [Augmentin 875-125] Albuterol Sulfate [Albuterol 1 puff PO Q4-6H PRN #8.5 gm 02/14/23 Sulfate Hfa] Azithromycin [Zithromax] 250 mg PO DIRECTED #6 tab 02/14/23 Promethazine/Dextromethorphan 5 ml PO Q4-6H PRN #473 ml 02/14/23 [Promethazine-Dm 6.25-15 mg/5Ml] predniSONE 50 mg PO DAILY 5 Days #5 tab 02/14/23 Ondansetron Odt [Zofran Odt] 4 mg PO Q8HR PRN #30 tab 01/10/24 predniSONE 50 mg PO DAILY #5 tab 03/21/24 HYDROcodone/APAP 10-325MG [Spurger 1 tab PO Q4HR PRN 3 Days #18 tab 06/07/24 10-325] predniSONE [Deltasone] 20 mg PO BID #10 tab 06/07/24 Allergies Allergy/AdvReac Type Severity Reaction Status Date / Time No Known Allergies Allergy Verified 06/07/24 12:38 Review of Systems ROS Statement: Those systems with pertinent positive or pertinent negative responses have been documented in the HPI. ROS Other: All systems not noted in ROS Statement are negative. Past Medical History Past Medical History: No Reported History History of Any Multi-Drug Resistant Organisms: None Reported Past Surgical History: Cholecystectomy Additional Past Surgical History / Comment(s): RIGHT LUMPECTOMY 2011 Past Anesthesia/Blood Transfusion Reactions: Postoperative Nausea & Vomiting (PONV) Past Psychological History: No Psychological Hx Reported Smoking Status: Never smoker Past Alcohol Use History: None Reported Past Drug Use History: None Reported - Past Family History Mother Family Medical History: Diabetes Mellitus, Hypertension Additional Family Medical History / Comment(s): type 2 Father Family Medical History: Unable to Obtain General Exam General appearance: alert, in distress, other (In pain, crying) Head exam: Present: atraumatic, normocephalic, normal inspection Eye exam: Present: normal appearance, PERRL, EOMI. Absent: scleral icterus, conjunctival injection, periorbital swelling ENT exam: Present: normal exam, mucous membranes moist Neck exam: Present: normal inspection Cardiovascular Exam: Present: normal rhythm, tachycardia GI/Abdominal exam: Present: soft, normal bowel sounds. Absent: distended, tenderness, guarding, rebound, rigid Extremities exam: Present: normal inspection, full ROM, normal capillary refill, other (5 out of 5 muscle strength in the bilateral lower extremities to include hip flexors, knee extensors, ankle and great toe dorsiflexors and plantar fle xors). Absent: tenderness, pedal edema, joint swelling, calf tenderness Back exam: Present: CVA tenderness (R), CVA tenderness (L), paraspinal tenderness (To palpation) Neurological exam: Present: alert Skin exam: Present: warm, dry, intact, normal color. Absent: rash Course Vital Signs 06/07/24 06/07/24 06/07/24 12:34 13:47 15:29 Temperature 98.1 F 99.2 F Pulse Rate 130 H 110 H 96 Respiratory 18 16 16 Rate Blood Pressure 161/87 148/89 134/82 O2 Sat by Pulse 99 100 100 Oximetry Medical Decision Making - Medical Decision Making Was pt. sent in by a medical professional or institution (, NATHANIEL, DIATHERMY EQUIPMENT REPAIRER, urgent care, hospital, or detention...) When possible be specific @ -No Did you speak to anyone other than the patient for history (EMS, parent, family, police, friend...)? What history was obtained from this source @ -No Did you review nursing and triage notes (agree or disagree)? Why? @ -I reviewed and agree with nursing and triage notes Were old charts reviewed (outside hosp., previous admission, EMS record, old EKG, old radiological studies, urgent care reports/EKG's, detention records)? Report findings @ -No old charts were reviewed Differential Diagnosis (chest pain, altered mental status, abdominal pain women, abdominal pain men, vaginal bleeding, weakness, fever, dyspnea, syncope, headache, dizziness, GI bleed, back pain, seizure, CVA, palpatations, mental health, musculoskeletal)? @ -Differential Back Pain: Strain, zoster, cauda equina syndrome, epidural abscess, vertebral osteomyelitis, discitis, fracture, subluxation, disc herniation, DJD, spinal stenosis, dissection, AAA, pancreatitis, peptic ulcer disease, pyelonephritis, kidney stone, this is not meant to be an all-inclusive list. EKG interpreted by me (3pts min.). @ -Not done X-rays interpreted by me (1pt min.). @ -None done CT interpreted by me (1pt min.). @ -Yes which demonstrates herniated disc's U/S interpreted by me (1pt. min.). @ -None done What testing was considered but not performed or refused? (CT, X-rays, U/S, labs)? Why? @ -None What meds were considered but not given or refused? Why? @ -None Did you discuss the management of the patient with other professionals (luli holcomb i.e. , NATHANIEL, DIATHERMY EQUIPMENT REPAIRER, lab, RT, psych nurse, social services, logging equipment mechanic, teacher, photographic intelligence officer, case briefer)? Give summary @ -No Was smoking cessation discussed for >3mins.? @ -No Was critical care preformed (if so, how long)? @ -No Were there social determinants of health that impacted care today? How? (Homelessness, low income, unemployed, alcoholism, drug addiction, transportation, low edu. Level, literacy, decrease access to med. care, alf, rehab)? @ -No Was there de-escalation of care discussed even if they declined (Discuss DNR or withdrawal of care, Hospice)? DNR status @ -No What co-morbidities impacted this encounter? (DM, HTN, Smoking, COPD, CAD, Cancer, CVA, ARF, Chemo, Hep., AIDS, mental health diagnosis, sleep apnea, morbid obesity)? @ -None Was patient admitted / discharged? Hospital course, mention meds given and route, prescriptions, significant lab abnormalities, going to OR and other pertinent info. @ -Upon arrival patient seen and evaluated in bed 24. Thorough history and physical exam was performed. Patient is having significant pain. She is crying. She is given pain control. Laboratory studies are conducted. CT was performed as I am unsure if the pain is due to musculoskeletal causes or something other intra-abdominal. CT does demonstrate herniated disks with some abutment of the L5-S1 on the left. This is discussed with the patient. She d oes feel better at this time. I did discuss treatment options. Patient be discharged home with a short prescription for Spurger. She does have a follow-up appointment with Dr. Castillo. Patient is to rest. No heavy lifting or bending. Return for any new or worsening symptoms. Patient agreeable to plan was discharged in stable condition Undiagnosed new problem with uncertain prognosis? @ -No Drug Therapy requiring intensive monitoring for toxicity (Heparin, Nitro, Insulin, Cardizem)? @ -No Were any procedures done? @ -No Diagnosis/symptom? @ -Acute lumbar back/flank pain, herniated lumbar disks with radicular symptoms Acute, or Chronic, or Acute on Chronic? @ -Acute Uncomplicated (without systemic symptoms) or Complicated (systemic symptoms)? @ -Complicated Side effects of treatment? @ -No Exacerbation, Progression, or Severe Exacerbation? @ -Yes Poses a threat to life or bodily function? How? (Chest pain, USA, IA, pneumonia, PE, COPD, DKA, ARF, appy, cholecystitis, CVA, Diverticulitis, Homicidal, Suicidal, threat to staff... and all critical care pts) @ -No - Lab Data Result diagrams: 06/07/24 13:06 06/07/24 13:06 Lab Results 06/07/24 06/07/24 06/07/24 Range/Units 13:06 13:06 13:06 WBC 13.3 H (3.8-10.6) k/uL RBC 4.23 (3.80-5.40) m/uL Hgb 12.8 (11.4-16.0) gm/dL Hct 39.7 (34.0-46.0) % MCV 93.8 (80.0-100.0) fL MCH 30.2 (25.0-35.0) pg MCHC 32.2 (31.0-37.0) g/dL RDW 13.2 (11.5-15.5) % Plt Count 419 (150-450) k/uL MPV 7.2 Neutrophils % 62 % Lymphocytes % 27 % Monocytes % 6 % Eosinophils % 4 % Basophils % 0 % Neutrophils # 8.3 H (1.3-7.7) k/uL Lymphocytes # 3.6 (1.0-4.8) k/uL Monocytes # 0.7 (0-1.0) k/uL Eosinophils # 0.5 (0-0.7) k/uL Basophils # 0.1 (0-0.2) k/uL Sodium (137-145) mmol/L Potassium (3.5-5.1) mmol/L Chloride (98-107) mmol/L Carbon Dioxide (22-30) mmol/L Anion Gap mmol/L BUN (7-17) mg/dL Creatinine (0.52-1.04) mg/dL Est GFR (CKD-EPI)AfAm (>60 ml/min/1.73 sqM) Est GFR (CKD-EPI)NonAf (>60 ml/min/1.73 sqM) Glucose (74-99) mg/dL Calcium (8.4-10.2) mg/dL Total Bilirubin (0.2-1.3) mg/dL AST (14-36) U/L ALT (4-34) U/L Alkaline Phosphatase (38-126) U/L Total Protein (6.3-8.2) g/dL Albumin (3.5-5.0) g/dL Urine Color Light Yellow Urine Appearance Clear (Clear) Urine pH 6.5 (5.0-8.0) Ur Specific [place] 1.012 (1.001-1.035) Urine Protein Negative (Negative) Urine Glucose (UA) Negative (Negative) Urine Ketones Negative (Negative) Urine Blood Negative (Negative) Urine Nitrite Negative (Negative) Urine Bilirubin Negative (Negative) Urine Urobilinogen <2.0 (<2.0) mg/dL Ur Leukocyte Esterase Trace H (Negative) Urine RBC 2 (0-5) /hpf Urine WBC 1 (0-5) /hpf Ur Squamous Epith Cells <1 (0-4) /hpf Urine Bacteria Occasional H (None) /hpf Urine HCG, Qual Not Detected (Not Detectd) 06/07/24 Range/Units 13:06 WBC (3.8-10.6) k/uL RBC (3.80-5.40) m/uL Hgb (11.4-16.0) gm/dL Hct (34.0-46.0) % MCV (80.0-100.0) fL MCH (25.0-35.0) pg MCHC (31.0-37.0) g/dL RDW (11.5-15.5) % Plt Count (150-450) k/uL MPV Neutrophils % % Lymphocytes % % Monocytes % % Eosinophils % % Basophils % % Neutrophils # (1.3-7.7) k/uL Lymphocytes # (1.0-4.8) k/uL Monocytes # (0-1.0) k/uL Eosinophils # (0-0.7) k/uL Basophils # (0-0.2) k/uL Sodium 138 (137-145) mmol/L Potassium 4.3 (3.5-5.1) mmol/L Chloride 100 (98-107) mmol/L Carbon Dioxide 28 (22-30) mmol/L Anion Gap 10 mmol/L BUN 16 (7-17) mg/dL Creatinine 0.72 (0.52-1.04) mg/dL Est GFR (CKD-EPI)AfAm >90 (>60 ml/min/1.73 sqM) Est GFR (CKD-EPI)NonAf >90 (>60 ml/min/1.73 sqM) Glucose 89 (74-99) mg/dL Calcium 9.7 (8.4-10.2) mg/dL Total Bilirubin 0.4 (0.2-1.3) mg/dL AST 37 H (14-36) U/L ALT 52 H (4-34) U/L Alkaline Phosphatase 48 (38-126) U/L Total Protein 7.4 (6.3-8.2) g/dL Albumin 4.4 (3.5-5.0) g/dL Urine Color Urine Appearance (Clear) Urine pH (5.0-8.0) Ur Specific [place] (1.001-1.035) Urine Protein (Negative) Urine Glucose (UA) (Negative) Urine Ketones (Negative) Urine Blood (Negative) Urine Nitrite (Negative) Urine Bilirubin (Negative) Urine Urobilinogen (<2.0) mg/dL Ur Leukocyte Esterase (Negative) Urine RBC (0-5) /hpf Urine WBC (0-5) /hpf Ur Squamous Epith Cells (0-4) /hpf Urine Bacteria (None) /hpf Urine HCG, Qual (Not Detectd) Disposition Clinical Impression: Back pain, Lumbar radiculopathy Disposition: HOME SELF-CARE Condition: Stable Instructions (If sedation given, give patient instructions): Lumbar Disc Herniation (ED), Lumbar Radiculopathy (ED) Additional Instructions: Use the medications that you have been prescribed. Use heating pads. No heavy lifting or bending. Follow-up with the pain management doctor and return for any new or worsening symptoms Prescriptions: predniSONE [Deltasone] 20 mg PO BID #10 tab HYDROcodone/APAP 10-325MG [Spurger 10-325] 1 tab PO Q4HR PRN 3 Days #18 tab PRN Reason: Pain Is patient prescribed a controlled substance at d/c from ED?: Yes When asked, does pt state using other controlled substances?: No If prescribed controlled substance>3 days was MAPS reviewed?: Prescribed <3 Days If opioid is for acute pain is fill amount 7 days or less?: Yes Referrals: Whitney Bolton MD [Primary Care Provider] - 1-2 days Elkin Ervin MD [STAFF PHYSICIAN] - 1-2 days Time of Disposition: 15:07
[2024-06-07] MEDS: ONDANSETRON 4 MG/2 ML VIAL IVP STA (15:21)
[2024-06-07 15:31] VITALS: BP 134/82; PULSE 96; TEMP 99.2
== END 2024-06-07 16:05 | disposition home or self-care (01) ==
LOC: EC 12:33
DX: M51.16 Intervertebral disc disorders with radiculopathy, lumbar region (principal)
CPT/HCPCS: 36415; 80053; 85025; 81001; 81025; 72131; 74176; 99284; 96374; 96375 ×2; 96376; 96372; J2405; J1171; J1885; J2919

== ENCOUNTER 2024-06-13 20:52 | Inpatient (IN) | payer MEDICAID ==
[2024-06-13] MEDS: SODIUM CHLORIDE 0.9% 1,000 ML IV STA (21:25)
[2024-06-13] MEDS: HYDROmorphone 1 MG/ML 1 ML SYRINGE IVP STA ×2 (21:26→22:02)
[2024-06-13] MEDS: ORPHENADRINE 30 MG/ML 2 ML VIAL IM STA (21:26)
--- NOTE | 2024-06-13 21:26 | ED ---
Back Pain HPI - General Source: patient, RN notes reviewed Limitations: no limitations <Jo Ann Castaneda - Last Filed: 06/13/24 23:51> <Zay Meyer - Last Filed: 06/14/24 03:46> - General Chief Complaint: Back Pain/Injury Stated Complaint: Back pain Time Seen by Provider: 06/13/24 21:23 - History of Present Illness Initial Comments: 33-year-old female presenting to the ER for back pain x 2 weeks. Reports a burning pain in the left lower back that radiates to the lower abdomen. Reports symptoms began after menstrual period 2 weeks ago. Denies vaginal bleeding or spotting. Denies injury or trauma. She was seen in the ER 2 days ago where she was discharged with negative lab work and CT abdomen of the abdomen/pelvis. She has follow-up appointment with spine doctor on Sunday however reports pain is worsening and is radiating into the pelvis. Denies bowel or bladder incontinence. Denies saddle anesthesia. She has been taking steroids and Toradol with little relief. She reports bilateral leg swelling that she believes is from the steroids. Endorses some constipation. History of cholecystectomy. (Jo Ann Castaneda) - Related Data Home Medications Medication Instructions Recorded Confirmed Etonogestrel-Ethinyl 1 insert VAGINAL QMONTHLY 10/05/21 10/07/21 Previous Rx's Medication Instructions Recorded HYDROcodone/APAP 5-325MG [Mckenzie 1 tab PO Q6HR PRN 3 Days #12 tab 09/24/21 5-325] Promethazine [Phenergan] 25 mg PO Q6H PRN 3 Days #24 tablet 09/24/21 Amoxic-Pot Clav 875-125Mg 1 tab PO Q12HR #20 tab 02/09/22 [Augmentin 875-125] Albuterol Sulfate [Albuterol 1 puff PO Q4-6H PRN #8.5 gm 02/14/23 Sulfate Hfa] Azithromycin [Zithromax] 250 mg PO DIRECTED #6 tab 02/14/23 Promethazine/Dextromethorphan 5 ml PO Q4-6H PRN #473 ml 02/14/23 [Promethazine-Dm 6.25-15 mg/5Ml] predniSONE 50 mg PO DAILY 5 Days #5 tab 02/14/23 Ondansetron Odt [Zofran Odt] 4 mg PO Q8HR PRN #30 tab 01/10/24 predniSONE 50 mg PO DAILY #5 tab 03/21/24 HYDROcodone/APAP 10-325MG [Mckenzie 1 tab PO Q4HR PRN 3 Days #18 tab 06/07/24 10-325] predniSONE [Deltasone] 20 mg PO BID #10 tab 06/07/24 Allergies Allergy/AdvReac Type Severity Reaction Status Date / Time No Known Allergies Allergy Verified 06/13/24 20:54 Review of Systems ROS Other: All systems not noted in ROS Statement are negative. <Jo Ann Castaneda - Last Filed: 06/13/24 23:51> ROS Other: All systems not noted in ROS Statement are negative. <Zay Meyer - Last Filed: 06/14/24 03:46> ROS Statement: Those systems with pertinent positive or pertinent negative responses have been documented in the HPI. Past Medical History Past Medical History: No Reported History History of Any Multi-Drug Resistant Organisms: None Reported Past Surgical History: Cholecystectomy Additional Past Surgical History / Comment(s): RIGHT LUMPECTOMY 2011 Past Anesthesia/Blood Transfusion Reactions: Postoperative Nausea & Vomiting (PONV) Past Psychological History: No Psychological Hx Reported Smoking Status: Never smoker Past Alcohol Use History: None Reported Past Drug Use History: None Reported - Past Family History Mother Family Medical History: Diabetes Mellitus, Hypertension Additional Family Medical History / Comment(s): type 2 Father Family Medical History: Unable to Obtain <Jo Ann Castaneda - Last Filed: 06/13/24 23:51> General Exam Limitations: no limitations General appearance: alert, in no apparent distress Head exam: Present: atraumatic, normocephalic, normal inspection Eye exam: Present: normal appearance, PERRL, EOMI. Absent: scleral icterus, conjunctival injection, periorbital swelling GI/Abdominal exam: Present: soft, normal bowel sounds. Absent: distended, tenderness, guarding, rebound, rigid Back exam: Present: normal inspection, full ROM, tenderness (Reproducible left lumbar paraspinal tenderness), paraspinal tenderness, other (Full sensation and DP pulses bilaterally. No saddle anesthesia). Absent: CVA tenderness (R), CVA tenderness (L), muscle spasm, vertebral tenderness, rash noted Neurological exam: Present: alert, oriented X3 Psychiatric exam: Present: normal affect, normal mood Skin exam: Present: warm, dry, intact, normal color. Absent: rash <Jo Ann Castaneda - Last Filed: 06/13/24 23:51> Course Vital Signs 06/13/24 20:52 Temperature 97.9 F Pulse Rate 125 H Respiratory 18 Rate Blood Pressure 142/88 O2 Sat by Pulse 100 Oximetry Medical Decision Making - Lab Data Result diagrams: 06/13/24 21:24 06/13/24 21:24 <Jo Ann Castaneda - Last Filed: 06/13/24 23:51> - Lab Data Result diagrams: 06/13/24 21:24 06/13/24 21:24 <MitchZay - Last Filed: 06/14/24 03:46> - Medical Decision Making Was pt. sent in by a medical professional or institution (, PA, SENIOR [employer]ACLE SOA DEVELOPER, urgent care, hospital, or [facility]...) When possible be specific @ -No Did you speak to anyone other than the patient for history (EMS, parent, family, police, friend...)? What history was obtained from this source @ -No Did you review nursing and triage notes (agree or disagree)? Why? @ -I reviewed and agree with nursing and triage notes Were old charts reviewed (outside hosp., previous admission, EMS record, old EKG, old radiological studies, urgent care reports/EKG's, [facility] records)? Report findings @ -Previous ER visit from [address] abdomen pelvis and CT lumbar spine reviewed which revealed herniated disks otherwise no acute intraabdominal process Differential Diagnosis (chest pain, altered mental status, abdominal pain women, abdominal pain men, vaginal bleeding, weakness, fever, dyspnea, syncope, headache, dizziness, GI bleed, back pain, seizure, CVA, palpatations, mental health, musculoskeletal)? @ -Differential Back Pain: Strain, zoster, cauda equina syndrome, epidural abscess, vertebral osteomyelitis, discitis, fracture, subluxation, disc herniation, DJD, spinal stenosis, dissection, AAA, pancreatitis, peptic ulcer disease, pyelonephritis, kidney stone, this is not meant to be an all-inclusive list. EKG interpreted by me (3pts min.). @ -None X-rays interpreted by me (1pt min.). @ -None done CT interpreted by me (1pt min.). @ -CT abdomen pelvis with contrast pending at time of signout U/S interpreted by me (1pt. min.). @ -Ultrasound pelvis pending at time of signout What testing was considered but not performed or refused? (CT, X-rays, U/S, l abs)? Why? @ -None What meds were considered but not given or refused? Why? @ -None Did you discuss the management of the patient with other professionals (professionals i.e. DrCassia, PA, SENIOR [employer]ACLE [employer] DEVELOPER, lab, RT, psych nurse, forensic social worker, rn teacher, teacher, learning officer, manager of case)? Give summary @ -No Was smoking cessation discussed for >3mins.? @ -No Was critical care preformed (if so, how long)? @ -No Were there social determinants of health that impacted care today? How? (Homelessness, low income, unemployed, alcoholism, drug addiction, transportation, low edu. Level, literacy, decrease access to med. care, detention, rehab)? @ -No Was there de-escalation of care discussed even if they declined (Discuss DNR or withdrawal of care, Hospice)? DNR status @ -No What co-morbidities impacted this encounter? (DM, HTN, Smoking, COPD, CAD, Cancer, CVA, ARF, Chemo, Hep., AIDS, mental health diagnosis, sleep apnea, morbid obesity)? @ -None Was patient admitted / discharged? Hospital course, mention meds given and route, prescriptions, significant lab abnormalities, going to OR and other pertinent info. @ -33-year-old female presenting with back pain x 2 weeks. No red flag symptoms. Patient is tachycardic and appears to be very uncomfortable on physical examination. Neurovascularly intact. Patient provided with IV fluids. Patient was given dose of Dilaudid. Lab work remarkable for leukocytosis of 20 likely due to steroid use. BUN 25. Elevated liver enzymes ALT 388 AST 253. Patient is not able to tolerate pelvic ultrasound due to pain, therefore patient was given an additional dose of Dilaudid as well as Zofran. Pain remains uncontrolled. Case signed out to my ED attending Dr. Meyer pending CT abdomen pelvis and disposition. (Jo Ann Castaneda) Patient signed out to me pending results of CT imaging. Briefly, patient has been presenting with worsening back pain for the last 2 weeks. No significant red flag symptoms. Does appear to be neurovascular intact. Has been on Toradol and steroids without much improvement. Has been given multiple doses of Dilaudid here in the department. She does have an elevated white count of 19.9 which is likely related to the steroid use. Slightly elevated liver enzymes and therefore we will obtain Tylenol and salicylate levels. She does have a history of cholecystectomy. Prior imaging did show some disc bulging in the lower lumbar spine with left-sided foraminal stenosis. Her symptoms are somewhat consistent with radiculopathy and possible nerve impingement. Pain is difficult to control. Recommended CT to rule out any intra-abdominal process due to the elevated white count. CTA abdomen pelvis is interpreted by myself reveals no obvious acute process. Patient has hepatic steatosis, as well as mild fecal retention. Discussed results with the patient. She is still having pain. We will admit for orthopedic spine evaluation. She was in agreement this plan. [facility] was [facility] who [facility] on[facility]. Therefore consult placed to Dr. Olivares who is their spine surgeon. We will continue with analgesia medications. Tylenol and salicylate levels pending at time of admission. Discussed with the admitting provider, Dr. Madrid who accepted the admission. Tylenol and salicylate levels both came back negative. Diagnosis/symptom? @ -Intractable back pain with radiculopathy Acute, or Chronic, or Acute on Chronic? @ -Acute Uncomplicated (without systemic symptoms) or Complicated (systemic symptoms)? @ -Complicated Side effects of treatment? @ -None Exacerbation, Progression, or Severe Exacerbation] @ -No Poses a threat to life or bodily function? @ -Potentially, yes (Zay Meyer) - Lab Data Lab Results 06/13/24 06/13/24 06/13/24 Range/Units 21:24 21:24 21:24 WBC 19.9 H (3.8-10.6) k/uL RBC 4.47 (3.80-5.40) m/uL Hgb 13.2 (11.4-16.0) gm/dL Hct 42.8 (34.0-46.0) % MCV 95.8 (80.0-100.0) fL MCH 29.5 (25.0-35.0) pg MCHC 30.8 L (31.0-37.0) g/dL RDW 12.9 (11.5-15.5) % Plt Count 454 H (150-450) k/uL MPV 6.1 Neutrophils % 61 % Lymphocytes % 29 % Monocytes % 7 % Eosinophils % 2 % Basophils % 0 % Neutrophils # 12.1 H (1.3-7.7) k/uL Lymphocytes # 5.7 H (1.0-4.8) k/uL Monocytes # 1.4 H (0-1.0) k/uL Eosinophils # 0.4 (0-0.7) k/uL Basophils # 0.1 (0-0.2) k/uL Sodium 139 (137-145) mmol/L Potassium 4.2 (3.5-5.1) mmol/L Chloride 101 (98-107) mmol/L Carbon Dioxide 30 (22-30) mmol/L Anion Gap 8 mmol/L BUN 25 H (7-17) mg/dL Creatinine 0.70 (0.52-1.04) mg/dL Est GFR (CKD-EPI)AfAm >90 (>60 ml/min/1.73 sqM) Est GFR (CKD-EPI)NonAf >90 (>60 ml/min/1.73 sqM) Glucose 99 (74-99) mg/dL Plasma Lactic Acid Riaz 0.9 (0.7-2.0) mmol/L Calcium 9.5 (8.4-10.2) mg/dL Total Bilirubin 0.5 (0.2-1.3) mg/dL AST 253 H (14-36) U/L ALT 388 H (4-34) U/L Alkaline Phosphatase 61 (38-126) U/L Total Protein 7.6 (6.3-8.2) g/dL Albumin 4.5 (3.5-5.0) g/dL Lipase 125 (23-300) U/L Urine Color Urine Appearance (Clear) Urine pH (5.0-8.0) Ur Specific [place] (1.001-1.035) Urine Protein (Negative) Urine Glucose (UA) (Negative) Urine Ketones (Negative) Urine Blood (Negative) Urine Nitrite (Negative) Urine Bilirubin (Negative) Urine Urobilinogen (<2.0) mg/dL Ur Leukocyte Esterase (Negative) Urine WBC (0-5) /hpf Ur Squamous Epith Cells (0-4) /hpf Urine Bacteria (None) /hpf Urine Mucus (None) /hpf Urine HCG, Qual (Not Detectd) Salicylates mg/dL Acetaminophen ug/mL 06/13/24 06/13/24 06/13/24 Range/Units 21:24 22:15 22:15 WBC (3.8-10.6) k/uL RBC (3.80-5.40) m/uL Hgb (11.4-16.0) gm/dL Hct (34.0-46.0) % MCV (80.0-100.0) fL MCH (25.0-35.0) pg MCHC (31.0-37.0) g/dL RDW (11.5-15.5) % Plt Count (150-450) k/uL MPV Neutrophils % % Lymphocytes % % Monocytes % % Eosinophils % % Basophils % % Neutrophils # (1.3-7.7) k/uL Lymphocytes # (1.0-4.8) k/uL Monocytes # (0-1.0) k/uL Eosinophils # (0-0.7) k/uL Basophils # (0-0.2) k/uL Sodium (137-145) mmol/L Potassium (3.5-5.1) mmol/L Chloride (98-107) mmol/L Carbon Dioxide (22-30) mmol/L Anion Gap mmol/L BUN (7-17) mg/dL Creatinine (0.52-1.04) mg/dL Est GFR (CKD-EPI)AfAm (>60 ml/min/1.73 sqM) Est GFR (CKD-EPI)NonAf (>60 ml/min/1.73 sqM) Glucose (74-99) mg/dL Plasma Lactic Acid Riaz (0.7-2.0) mmol/L Calcium (8.4-10.2) mg/dL Total Bilirubin (0.2-1.3) mg/dL AST (14-36) U/L ALT (4-34) U/L Alkaline Phosphatase (38-126) U/L Total Protein (6.3-8.2) g/dL Albumin (3.5-5.0) g/dL Lipase (23-300) U/L Urine Color Yellow Urine Appearance Clear (Clear) Urine pH 6.0 (5.0-8.0) Ur Specific [place] 1.041 H (1.001-1.035) Urine Protein Trace H (Negative) Urine Glucose (UA) Negative (Negative) Urine Ketones Negative (Negative) Urine Blood Negative (Negative) Urine Nitrite Negative (Negative) Urine Bilirubin Negative (Negative) Urine Urobilinogen 2.0 (<2.0) mg/dL Ur Leukocyte Esterase Small H (Negative) Urine WBC 3 (0-5) /hpf Ur Squamous Epith Cells 3 (0-4) /hpf Urine Bacteria Few H (None) /hpf Urine Mucus Rare H (None) /hpf Urine HCG, Qual Not Detected (Not Detectd) Salicylates <1.0 mg/dL Acetaminophen <10.0 ug/mL Disposition <Jo Ann Castaneda - Last Filed: 06/13/24 23:51> Time of Disposition: 01:15 <Zay Meyer - Last Filed: 06/14/24 03:46> Clinical Impression: Intractable back pain Disposition: ADMITTED IP TO THIS [facility] Condition: Stable
[2024-06-13 21:31] LABS: Basophils # (A) 0.1 k/uL (0-0.2); Basophils % (A) 0 %; Eosinophils # (A) 0.4 k/uL (0-0.7); Eosinophils % (A) 2 %; HCT 42.8 % (34.0-46.0); HGB 13.2 gm/dL (11.4-16.0); Lymphocytes # (A) 5.7 k/uL (1.0-4.8); Lymphocytes % (A) 29 %; MCH 29.5 pg (25.0-35.0); MCHC 30.8 g/dL (31.0-37.0); MCV 95.8 fL (80.0-100.0); Mean Platelet Volume 6.1; Monocytes # (A) 1.4 k/uL (0-1.0); Monocytes % (A) 7 %; Neutrophils # (A) 12.1 k/uL (1.3-7.7); Neutrophils % (A) 61 %; Platelet Count 454 k/uL (150-450); RBC 4.47 m/uL (3.80-5.40); RDW 12.9 % (11.5-15.5); WBC 19.9 k/uL (3.8-10.6)
[2024-06-13 22:01] LABS: ALT 388 U/L (4-34); AST 253 U/L (14-36); African American GFR (CKD) >90 (>60 ml/min/1.73 sqM); Albumin 4.5 g/dL (3.5-5.0); Alkaline Phosphatase 61 U/L (38-126); Anion Gap 8 mmol/L; Blood Urea Nitrogen 25 mg/dL (7-17); Calcium 9.5 mg/dL (8.4-10.2); Carbon Dioxide 30 mmol/L (22-30); Chloride 101 mmol/L (98-107); Glucose 99 mg/dL (74-99); Lipase 125 U/L (23-300); Non-African American GFR(CKD) >90 (>60 ml/min/1.73 sqM); Potassium 4.2 mmol/L (3.5-5.1); Sodium 139 mmol/L (137-145); Total Bilirubin 0.5 mg/dL (0.2-1.3); Total Protein 7.6 g/dL (6.3-8.2)
[2024-06-13] MEDS: ONDANSETRON 4 MG/2 ML VIAL IVP STA (22:04)
[2024-06-13 22:32] LABS: Appearance,Urine Clear (Clear); Bacteria,Urine Few /hpf; Bilirubin,Urine Negative (Negative); Blood,Urine Negative (Negative); Color,Urine Yellow; Glucose,Urine (UA) Negative (Negative); Ketones,Urine Negative (Negative); Leukocyte Esterase,Urine Small (Negative); Mucus,Urine Rare /hpf; Nitrite,Urine Negative (Negative); Protein,Urine Trace (Negative); Specific Gravity,Urine 1.041 (1.001-1.035); Squamous Epithelial Cell,Urine 3 /hpf (0-4); WBC,Urine 3 /hpf (0-5)
--- NOTE | 2024-06-14 00:21 | CT ---
EXAM: CT Abdomen and Pelvis With Intravenous Contrast CLINICAL HISTORY: ITS.REASON CT Reason: low abdominal pain TECHNIQUE: Axial computed tomography images of the abdomen and pelvis with intravenous contrast. CTDI is 22 mGy and DLP is 1173.5 mGy-cm. This CT exam was performed using one or more of the following dose reduction techniques: automated exposure control, adjustment of the mA and/or kV according to patient size, and/or use of iterative reconstruction technique. COMPARISON: No relevant prior studies available. FINDINGS: Lung bases: Unremarkable. No mass. No consolidation. ABDOMEN: Liver: Hepatic steatosis. Gallbladder and bile ducts: Cholecystectomy. No ductal dilation. Pancreas: Unremarkable. No mass. No ductal dilation. Spleen: Unremarkable. No splenomegaly. Adrenals: Unremarkable. No mass. Kidneys and ureters: Unremarkable. No solid mass. No hydronephrosis. Stomach and bowel: Mild fecal retention, correlate for constipation. No obstruction. No mucosal thickening. PELVIS: Appendix: No findings to suggest acute appendicitis. Bladder: Unremarkable. No mass. Reproductive: Unremarkable as visualized. ABDOMEN and PELVIS: Intraperitoneal space: Unremarkable. No free air. No significant fluid collection. Bones/joints: No acute fracture. No dislocation. Soft tissues: Unremarkable. Vasculature: Unremarkable. No abdominal aortic aneurysm. Lymph nodes: Unremarkable. No enlarged lymph nodes. IMPRESSION: 1. Hepatic steatosis. 2. Cholecystectomy. 3. Mild fecal retention, correlate for constipation.
[2024-06-14] MEDS ORDERED: NALOXONE 0.4 MG/ML 1 ML VIAL IV PRN (01:14)
[2024-06-14] MEDS: CYCLOBENZAPRINE 10 MG TAB PO STA (01:30)
[2024-06-14] MEDS: HYDROmorphone 1 MG/ML 1 ML SYRINGE IVP STA (01:31)
[2024-06-14] MEDS: SODIUM CHLORIDE 0.9% 1,000 ML IV SCH (01:32)
[2024-06-14] MEDS: IBUPROFEN 400 MG TAB PO PRN (03:25)
[2024-06-14] MEDS: KETOROLAC 15 MG/ML 1 ML VIAL IVP PRN (03:26)
[2024-06-14 03:43] LABS: Acetaminophen <10.0 ug/mL; Salicylate <1.0 mg/dL
--- NOTE | 2024-06-14 03:52 | P.HPIM ---
History of Present Illness H&P Date: 06/14/24 Patient is a 33-year-old female with no known PMH who presents to the emergency room with complaints of left lower back pain with radiation into her left leg. Patient notes her symptoms started roughly 6 weeks ago and gradually progressed. She was seen at her PCPs office where she was given oral steroids and pain medication. The patient was subsequently seen in the emergency room on 06/07 where a lumbar spinal CT revealed mild disc bulges from L4-S1 with mild to moderate foraminal narrowing at the L5-S1. She was given an oral course of prednisone and was discharged home. Patient notes however that her pain has persisted and is not being controlled with [id number] Tylenol and Motrin. She reports taking extra strength Tylenol 4-5 times a day over the past several weeks. At time of interview, she reports ongoing 5 out of 10 pain. Does report some left lower extremity weakness but is unsure if it is due to the pain. Denies experiencing fever, chills, chest pain, shortness of breath, nausea, vomiting, diarrhea. In the emergency room a CT abdomen pelvis revealed hepatic steatosis with mild fecal retention. Laboratory evaluation was remarkable for leukocytosis of 19.9 with platelet count 454, BUN 25, creatinine 0.7, glucose 99, AST 253, and ALT 388 with an unremarkable UA. ED documentation reviewed and case discussed with ED provider. Review of systems: Pertinent positives and negatives as discussed in HPI, a complete review of systems was performed and all other systems are negative. Physical examination: Vital signs reviewed General: non toxic, appears to be in mild to moderate distress from pain, appears at stated age Derm: no unusual rashes/lesions, warm Head: atraumatic, normocephalic, symmetric Eyes: EOMI, no lid lag, anicteric sclera ENT: Nose and ears atraumatic Neck: No cervical lymphadenopathy, trachea midline, supple Cardiovascular: S1S2 reg, no murmur, positive dorsalis pedis pulse bilateral, no edema Lungs: CTA bilateral, no rhonchi, no rales, no accessory muscle use Abdominal: soft, nontender to palpation, no guarding Ext: muscle strength 5 out of 5 in all extremities grossly except the left lower extremity strength limited to 4 out of 5 possibly due to pain, no gross muscle atrophy, no contractures, Neuro: CN II-XI grossly intact, no gross focal neuro deficits Psych: Alert, oriented, appropriate affect Assessment: Intractable left lower back pain with radicular symptoms Leukocytosis, likely due to ongoing steroid use Transaminitis, possibly secondary to Tylenol use Imaging: In the emergency room a CT abdomen pelvis revealed hepatic steatosis with mild fecal retention. Data Review: Laboratory evaluation was remarkable for leukocytosis of 19.9 with platelet count 454, BUN 25, creatinine 0.7, glucose 99, AST 253, and ALT 388 with an unremarkable UA. Plan: [facility] consulted Continue with pain control with Dilaudid 1 mg every 3 hours as needed, Toradol 50 mg every 6 hours as needed, and tramadol 100 mg p.o. 3 times daily scheduled Acetaminophen level less than 10 DVT prophylaxis: Lovenox subcu The patient is admitted with an anticipated fewer than 2 midnight stay for evaluation of back pain CODE STATUS: Full Code Discussed with: Patient Anticipated discharge place: Home Past Medical History Past Medical History: No Reported History History of Any Multi-Drug Resistant Organisms: None Reported Past Surgical History: Cholecystectomy Additional Past Surgical History / Comment(s): RIGHT LUMPECTOMY 2011 Past Anesthesia/Blood Transfusion Reactions: Postoperative Nausea & Vomiting (PONV) Past Psychological History: No Psychological Hx Reported Smoking Status: Never smoker Past Alcohol Use History: None Reported Past Drug Use History: None Reported - Past Family History Mother Family Medical History: Diabetes Mellitus, Hypertension Additional Family Medical History / Comment(s): type 2 Father Family Medical History: Unable to Obtain Medications and Allergies Home Medications Medication Instructions Recorded Confirmed Type HYDROcodone/APAP 5-325MG [Mylo 1 tab PO Q6HR PRN 3 Days #12 tab 09/24/21 10/07/21 Rx 5-325] Promethazine [Phenergan] 25 mg PO Q6H PRN 3 Days #24 tablet 09/24/21 10/07/21 Rx Etonogestrel-Ethinyl 1 insert VAGINAL QMONTHLY 10/05/21 10/07/21 History Amoxic-Pot Clav 875-125Mg 1 tab PO Q12HR #20 tab 02/09/22 Rx [Augmentin 875-125] Albuterol Sulfate [Albuterol 1 puff PO Q4-6H PRN #8.5 gm 02/14/23 Rx Sulfate Hfa] Azithromycin [Zithromax] 250 mg PO DIRECTED #6 tab 02/14/23 Rx Promethazine/Dextromethorphan 5 ml PO Q4-6H PRN #473 ml 02/14/23 Rx [Promethazine-Dm 6.25-15 mg/5Ml] predniSONE 50 mg PO DAILY 5 Days #5 tab 02/14/23 Rx Ondansetron Odt [Zofran Odt] 4 mg PO Q8HR PRN #30 tab 01/10/24 Rx predniSONE 50 mg PO DAILY #5 tab 03/21/24 Rx HYDROcodone/APAP 10-325MG [Mylo 1 tab PO Q4HR PRN 3 Days #18 tab 06/07/24 Rx 10-325] predniSONE [Deltasone] 20 mg PO BID #10 tab 06/07/24 Rx Allergies Allergy/AdvReac Type Severity Reaction Status Date / Time No Known Allergies Allergy Verified 06/13/24 20:54 Physical Exam Vitals: Vital Signs Temp Pulse Resp BP Pulse Ox 06/13/24 20:52 97.9 F 125 H 18 142/88 100 Intake and Output 06/13/24 06/13/24 06/14/24 14:59 22:59 06:59 Other: Weight 83.915 kg Results CBC & Chem 7: 06/13/24 21:24 06/13/24 21:24 Labs: Abnormal Lab Results - Last 24 Hours (Table) 06/13/24 06/13/24 06/13/24 Range/Units 21:24 21:24 22:15 WBC 19.9 H (3.8-10.6) k/uL MCHC 30.8 L (31.0-37.0) g/dL Plt Count 454 H (150-450) k/uL Neutrophils # 12.1 H (1.3-7.7) k/uL Lymphocytes # 5.7 H (1.0-4.8) k/uL Monocytes # 1.4 H (0-1.0) k/uL BUN 25 H (7-17) mg/dL AST 253 H (14-36) U/L ALT 388 H (4-34) U/L Ur Specific [place] 1.041 H (1.001-1.035) Urine Protein Trace H (Negative) Ur Leukocyte Esterase Small H (Negative) Urine Bacteria Few H (None) /hpf Urine Mucus Rare H (None) /hpf
[2024-06-14] MEDS: HYDROmorphone 1 MG/ML 1 ML SYRINGE IVP PRN (04:17)
[2024-06-14] MEDS: traMADol 50 MG TAB PO SCH (06:59)
[2024-06-14] MEDS: HEPARIN SODIUM,PORCINE 5,000 UNIT/ML 1 ML VIAL SQ SCH (08:13)
[2024-06-14 11:31] LABS: Basophils # (A) 0.1 k/uL (0-0.2); Basophils % (A) 0 %; Eosinophils # (A) 0.4 k/uL (0-0.7); Eosinophils % (A) 3 %; HCT 35.4 % (34.0-46.0); HGB 11.1 gm/dL (11.4-16.0); Hypochromasia Slight; Lymphocytes # (A) 4.6 k/uL (1.0-4.8); Lymphocytes % (A) 34 %; MCH 30.7 pg (25.0-35.0); MCHC 31.3 g/dL (31.0-37.0); MCV 97.9 fL (80.0-100.0); Mean Platelet Volume 6.4; Monocytes # (A) 1.1 k/uL (0-1.0); Monocytes % (A) 8 %; Neutrophils # (A) 7.2 k/uL (1.3-7.7); Neutrophils % (A) 53 %; Platelet Count 349 k/uL (150-450); RBC 3.62 m/uL (3.80-5.40); RDW 12.9 % (11.5-15.5); WBC 13.5 k/uL (3.8-10.6)
[2024-06-14 11:46] LABS: AST 459 U/L (14-36); African American GFR (CKD) >90 (>60 ml/min/1.73 sqM); Albumin 3.5 g/dL (3.5-5.0); Albumin/Globulin Ratio 1.3; Alkaline Phosphatase 74 U/L (38-126); Anion Gap 6 mmol/L; Blood Urea Nitrogen 14 mg/dL (7-17); Calcium 8.6 mg/dL (8.4-10.2); Carbon Dioxide 30 mmol/L (22-30); Chloride 100 mmol/L (98-107); Globulin 2.6 g/dL; Glucose 91 mg/dL (74-99); Non-African American GFR(CKD) >90 (>60 ml/min/1.73 sqM); Potassium 3.9 mmol/L (3.5-5.1); Sodium 136 mmol/L (137-145); Total Bilirubin 1.2 mg/dL (0.2-1.3); Total Protein 6.1 g/dL (6.3-8.2)
[2024-06-14 12:06] LABS: ALT 750 U/L (4-34)
[2024-06-14] MEDS: CYCLOBENZAPRINE 10 MG TAB PO PRN (13:42)
[2024-06-15] MEDS: ONDANSETRON 4 MG/2 ML VIAL IVP PRN (02:57)
[2024-06-15 08:33] LABS: Basophils % (A) 0 %; Eosinophils # (A) 0.6 k/uL (0-0.7); Eosinophils % (A) 4 %; HCT 35.9 % (34.0-46.0); HGB 10.8 gm/dL (11.4-16.0); Lymphocytes # (A) 3.9 k/uL (1.0-4.8); Lymphocytes % (A) 27 %; MCH 29.4 pg (25.0-35.0); MCV 97.9 fL (80.0-100.0); Mean Platelet Volume 6.8; Monocytes # (A) 0.8 k/uL (0-1.0); Monocytes % (A) 5 %; Neutrophils # (A) 9.1 k/uL (1.3-7.7); Neutrophils % (A) 62 %; Platelet Count 324 k/uL (150-450); RBC 3.67 m/uL (3.80-5.40); RDW 13.1 % (11.5-15.5); WBC 14.6 k/uL (3.8-10.6)
[2024-06-15 08:53] LABS: ALT 517 U/L (4-34); AST 150 U/L (14-36); African American GFR (CKD) >90 (>60 ml/min/1.73 sqM); Albumin 3.4 g/dL (3.5-5.0); Albumin/Globulin Ratio 1.4; Alkaline Phosphatase 68 U/L (38-126); Anion Gap 3 mmol/L; Blood Urea Nitrogen 11 mg/dL (7-17); Calcium 8.5 mg/dL (8.4-10.2); Carbon Dioxide 31 mmol/L (22-30); Chloride 101 mmol/L (98-107); Globulin 2.5 g/dL; Glucose 102 mg/dL (74-99); Non-African American GFR(CKD) >90 (>60 ml/min/1.73 sqM); Potassium 4.1 mmol/L (3.5-5.1); Sodium 135 mmol/L (137-145); Total Bilirubin 0.7 mg/dL (0.2-1.3); Total Protein 5.9 g/dL (6.3-8.2)
--- NOTE | 2024-06-15 10:31 | P.PN ---
Progress Note - Text Progress Note Date: 06/15/24 Patient is a 33-year-old female who reports back to [facility] for second time in the last 10 days with regards to severe low back pain. Patient had initially been evaluated by her primary care doctor and was started on conservative measures, this to include Tylenol, Motrin and a trial of oral steroids. Patient was recently at [facility] on 06/07/2024, CT scan of the lumbar spine was done at that time, did demonstrate some degenerative changes in the L4-L5 and L5-S1 region. Patient's symptoms seem to have continued to worsen after review of the ER and internal medicine notes. MRI of the lumbar spine without contrast has been ordered, full consult pending.
--- NOTE | 2024-06-15 11:48 | P.PN ---
Subjective Progress Note Date: 06/15/24 Hospital Course: Patient is a 33-year-old female with no known PMH who presents to the emergency room with complaints of left lower back pain with radiation into her left leg. Patient notes her symptoms started roughly 6 weeks ago and gradually progressed. She was seen at her PCPs office where she was given oral steroids and pain medication. The patient was subsequently seen in the emergency room on 06/07 where a lumbar spinal CT revealed mild disc bulges from L4-S1 with mild to moderate foraminal narrowing at the L5-S1. She was given an oral course of prednisone and was discharged home. Patient notes however that her pain has persisted and is not being controlled with [id number] Tylenol and Motrin. She reports taking extra strength Tylenol 4-5 times a day over the past several weeks. 06/15 patient reported worsening pain that started after she woke up, she initially had some improvement yesterday. Orthopedic surgery consulted, MRI ordered. Leukocytosis trending down, hemoglobin also down from normal baseline, patient does not report any history of anemia or bleeding at this time, ALT and AST are trending down, no abdominal pain Subjective: Continues to complain of back pain, worse from yesterday Pertinent positives and negatives as discussed above, a complete review of systems was performed and all other systems are negative. Vitals Signs Reviewed. General: non toxic, appears to be in mild to moderate distress from pain, appears at stated age Derm: no unusual rashes/lesions, warm Head: atraumatic, normocephalic, symmetric Eyes: EOMI, no lid lag, anicteric sclera ENT: Nose and ears atraumatic Neck: No cervical lymphadenopathy, trachea midline, supple Cardiovascular: S1S2 reg, no murmur, positive dorsalis pedis pulse bilateral, no edema Lungs: CTA bilateral, no rhonchi, no rales, no accessory muscle use Abdominal: soft, nontender to palpation, no guarding Ext: muscle strength 5 out of 5 in all extremities grossly except the left lower extremity strength limited to 4 out of 5 , no gross muscle atrophy, no contractures, pedal puffiness improvement Neuro: CN II-XI grossly intact, no gross focal neuro deficits Psych: Alert, oriented, appropriate affect Assessment and Plan: Intractable left lower back pain with radicular symptoms Leukocytosis, likely due to ongoing steroid use Transaminitis, possibly secondary to Tylenol use Hepatic steatosis -CMP to monitor -Orthopedic surgery consulted, MRI pending -Continue with pain control with Dilaudid 1 mg every 3 hours as needed, Toradol 50 mg every 6 hours as needed, and tramadol 100 mg p.o. 3 times daily scheduled, morphine ordered -Will add PPI for prophylaxis -Stop IV fluids, as adequate oral intake DVT ppx: lovenox Code status: full Anticipated discharge place: tbd Anticipated discharge time: tbd Objective - Vital Signs Vital signs: Vital Signs Temp 98.6 F 06/15/24 06:43 Pulse 104 H 06/15/24 06:43 Resp 16 06/15/24 06:43 BP 130/88 06/15/24 06:43 Pulse Ox 99 06/15/24 06:43 FiO2 Intake & Output 06/14/24 06/15/24 06/15/24 18:59 06:59 18:59 Intake Total 1442 Balance 1442 Weight 83.915 kg Intake: Oral 1442 Other: Voiding Method Toilet Toilet # Voids 3 - Labs CBC & Chem 7: 06/15/24 08:20 06/15/24 08:10 Labs: Abnormal Lab Results - Last 24 Hours (Table) 06/14/24 06/15/24 06/15/24 Range/Units 10:49 08:10 08:20 WBC 14.6 H (3.8-10.6) k/uL RBC 3.67 L (3.80-5.40) m/uL Hgb 10.8 L (11.4-16.0) gm/dL MCHC 30.0 L (31.0-37.0) g/dL Neutrophils # 9.1 H (1.3-7.7) k/uL Sodium 136 L 135 L (137-145) mmol/L Carbon Dioxide 31 H (22-30) mmol/L Glucose 102 H (74-99) mg/dL AST 459 H 150 H (14-36) U/L ALT 750 H 517 H (4-34) U/L Total Protein 6.1 L 5.9 L (6.3-8.2) g/dL Albumin 3.4 L (3.5-5.0) g/dL
[2024-06-15] MEDS ORDERED: SENNOSIDES 8.6 MG TAB PO PRN (12:11)
[2024-06-15] MEDS: polyethylene glycoL 3350 17 GM POWD.PACK PO SCH (12:49)
[2024-06-15] MEDS: MORPHINE SULFATE 2 MG/ML SYRINGE IVP PRN (14:55)
[2024-06-15] MEDS: PANTOPRAZOLE 40 MG TABLET PO SCH (17:45)
[2024-06-16 08:27] LABS: Basophils # (A) 0.05 X 10*3/uL (0.00-0.10); Basophils % (A) 0.4 %; Eosinophils # (A) 0.69 X 10*3/uL (0.04-0.35); Eosinophils % (A) 5.3 %; HCT 37.1 % (37.2-46.3); HGB 11.7 g/dL (12.0-15.0); Lymphocytes % (A) 31.8 %; MCH 30.2 pg (27.0-32.0); MCHC 31.5 g/dL (32.0-37.0); MCV 95.6 FL (80.0-97.0); Monocytes # (A) 1.24 X 10*3/uL (0.20-1.00); Monocytes % (A) 9.6 %; NRBC Per 100 WBC 0 X 10*3/uL (0.00-0.01); Neutrophils # (A) 6.71 X 10*3/uL (1.80-7.70); Platelet Count 338 X 10*3/uL (140-440); RBC 3.88 X 10*6/uL (4.10-5.20); RDW 13.4 % (11.5-14.5); WBC 12.91 X 10*3/uL (4.50-10.00)
[2024-06-16 08:46] LABS: ALT 399 U/L (8-44); AST 76 U/L (13-35); Albumin/Globulin Ratio 1.67 Ratio (1.60-3.17); Alkaline Phosphatase 82 U/L (41-126); BUN/Creat Ratio 15.17 Ratio (12.00-20.00); Blood Urea Nitrogen 9.1 mg/dL (9.0-27.0); Calcium 9.2 mg/dL (8.7-10.3); Carbon Dioxide 28.5 mmol/L (21.6-31.8); Chloride 100 mmol/L (96-109); Globulin 2.4 g/dL (1.6-3.3); Glucose 90 mg/dL (70-110); Potassium 4.7 mmol/L (3.5-5.5); Sodium 137 mmol/L (135-145); Total Bilirubin 0.4 mg/dL (0.3-1.2); Total Protein 6.4 g/dL (6.2-8.2)
--- NOTE | 2024-06-16 12:18 | P.PN ---
Subjective Progress Note Date: 06/16/24 Hospital Course: Patient is a 33-year-old female with no known PMH who presents to the emergency room with complaints of left lower back pain with radiation into her left leg. Patient notes her symptoms started roughly 6 weeks ago and gradually progressed. She was seen at her PCPs office where she was given oral steroids and pain medication. The patient was subsequently seen in the emergency room on 06/07 where a lumbar spinal CT revealed mild disc bulges from L4-S1 with mild to moderate foraminal narrowing at the L5-S1. She was given an oral course of prednisone and was discharged home. Patient notes however that her pain has persisted and is not being controlled with [id number] Tylenol and Motrin. She reports taking extra strength Tylenol 4-5 times a day over the past several weeks. 06/15 patient reported worsening pain that started after she woke up, she initially had some improvement yesterday. Orthopedic surgery consulted, MRI ordered. She was previously on steroids and noted significant lower extremity swelling, mildly improved while off steroids Leukocytosis trending down, hemoglobin also down from normal baseline, patient does not report any history of anemia or bleeding at this time, ALT and AST are trending down, no abdominal pain. Has history of chronic constipation, on bowel regimen, added mag citrate today Subjective: Continues to complain of back pain, some improvement on 06/15 in the evening, however woke up again with worsening pain, burning sensation in her left lower extremity, noted some numbness on the plantar left pinky toe, on physical exam sensation is preserved Pertinent positives and negatives as discussed above, a complete review of systems was performed and all other systems are negative. Vitals Signs Reviewed. General: non toxic, appears to be in mild to moderate distress from pain, appears at stated age Derm: no unusual rashes/lesions, warm Head: atraumatic, normocephalic, symmetric Eyes: EOMI, no lid lag, anicteric sclera ENT: Nose and ears atraumatic Neck: No cervical lymphadenopathy, trachea midline, supple Cardiovascular: S1S2 reg, no murmur, positive dorsalis pedis pulse bilateral, no edema Lungs: CTA bilateral, no rhonchi, no rales, no accessory muscle use Abdominal: soft, nontender to palpation, no guarding Ext: muscle strength 5 out of 5 in all extremities grossly except the left lower extremity strength limited to 4 out of 5 , no gross muscle atrophy, no contractures, pedal puffiness improvement Neuro: CN II-XI grossly intact, no gross focal neuro deficits Psych: Alert, oriented, appropriate affect Assessment and Plan: Intractable left lower back pain with radicular symptoms Leukocytosis, likely due to ongoing steroid use Transaminitis, possibly secondary to Tylenol use Hepatic steatosis -CMP to monitor -Orthopedic surgery consulted, MRI pending -Pain medicine consulted, appreciate recommendations -Continue with pain control with Dilaudid 1 mg every 3 hours as needed, Toradol 50 mg every 6 hours as needed, and tramadol 100 mg p.o. 3 times daily scheduled, morphine ordered -Will add PPI for prophylaxis Constipation: Continue senna, MiraLAX, added mag citrate DVT ppx: lovenox Code status: full Anticipated discharge place: tbd Anticipated discharge time: tbd Objective - Vital Signs Vital signs: Vital Signs Temp 99 F 06/16/24 06:59 Pulse 99 06/16/24 08:00 Resp 18 06/16/24 08:00 BP 128/82 06/16/24 06:59 Pulse Ox 100 06/16/24 06:59 FiO2 Intake & Output 06/15/24 06/16/24 06/16/24 18:59 06:59 18:59 Intake Total 1524 Balance 1524 Intake: Oral 1524 Other: Voiding Method Toilet Toilet Toilet # Voids 3 - Labs CBC & Chem 7: 06/16/24 05:12 06/16/24 05:12 Labs: Abnormal Lab Results - Last 24 Hours (Table) 06/16/24 06/16/24 Range/Units 05:12 05:12 WBC 12.91 H (4.50-10.00) X 10*3/uL RBC 3.88 L (4.10-5.20) X 10*6/uL Hgb 11.7 L (12.0-15.0) g/dL Hct 37.1 L (37.2-46.3) % MCHC 31.5 L (32.0-37.0) g/dL MPV 9.0 L (9.5-12.2) FL Immature Gran # 0.12 H (0.00-0.04) X 10*3/uL Monocytes # 1.24 H (0.20-1.00) X 10*3/uL Eosinophils # 0.69 H (0.04-0.35) X 10*3/uL AST 76 H (13-35) U/L ALT 399 H (8-44) U/L
--- NOTE | 2024-06-16 13:35 | P.CNOR ---
History of Present Illness - [facility] Consult date: 06/15/24 Consult reason: low back pain History of present illness: Patient is a 33-year-old female who presented back to [facility] with regards to severe back pain and radiating pain into her left lower extremity. Patient was in the hospital on 06/07/2024 with similar symptoms, she had undergone a lumbar CT without contrast at that time. Patient states that this initial problem again about 5 or 6 weeks ago, over the last week and 1/2 to 2 weeks the symptoms have progressively gotten worse. Between the emergency room and her primary care doctor, she has tried Tylenol, Motrin and also 2 separate Medrol Dosepaks with no relief of her symptoms. Patient was admitted to [facility] on 06/15/2024 with regards to this problem, orthopedic team was consulted. Patient was evaluated at bedside, she appears to being quite a bit of pain and discomfort, she is constantly changing positions in bed to try to relieve the low back and left lower extremity symptoms. Patient denies any recent trauma or changes in activity that would have caused this. She denies any previous surgery to the low back. She admits to some numbness and tingling in the left foot. She admits to radiating pain that starts in her low back that radiates down the back of her leg past her knee into her foot. Patient is having no right lower extremity symptoms at this time. Patient denies any numbness or tingling, pain or anali weakness to the bilateral upper extremities. She denies any loss of bowel or bladder function. She denies any perineal or genital numbness or tingling. 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 Patient normally utilizes no assistive devices for ambulation. Review of Systems Constitutional: Reports as per HPI Past Medical History Past Medical History: No Reported History History of Any Multi-Drug Resistant Organisms: None Reported Past Surgical History: Cholecystectomy Additional Past Surgical History / Comment(s): RIGHT LUMPECTOMY 2011 Past Anesthesia/Blood Transfusion Reactions: Postoperative Nausea & Vomiting (PONV) Past Psychological History: No Psychological Hx Reported Smoking Status: Never smoker Past Alcohol Use History: None Reported Past Drug Use History: None Reported - Past Family History Mother Family Medical History: Diabetes Mellitus, Hypertension Additional Family Medical History / Comment(s): type 2 Father Family Medical History: Unable to Obtain Medications and Allergies Home Medications Medication Instructions Recorded Confirmed Type Acetaminophen Tab [Tylenol Tab] 500 - 1,000 mg PO Q6HR PRN 06/14/24 06/14/24 History Cyclobenzaprine [Flexeril] 10 mg PO TID PRN 06/14/24 06/14/24 History Ibuprofen [Motrin] 800 mg PO Q8H PRN 06/14/24 06/14/24 History Ketorolac [Toradol] 10 mg PO Q6HR PRN 06/14/24 06/14/24 History Phentermine HCl [Adipex-P] 37.5 mg PO DAILY 06/14/24 06/14/24 History Allergies Allergy/AdvReac Type Severity Reaction Status Date / Time No Known Allergies Allergy Verified 06/14/24 10:05 Physical Examination Gen: AOx3, NAD VSS stable at this time Integument: No open lesions or sores are visualized throughout the cervical, thoracic or lumbar spine Palpation: Patient demonstrates paraspinal tenderness in the lower lumbar spine and also SI joint tenderness on the left-hand side ROM: Full range of motion all major muscle groups of the bilateral upper and lower extremities, no focal deficits appreciated Sensory Exam: Senory exam to light touch is intact C5-T1 Senosry exam to light touch is intact L2-S1 Motor: 5/5 strength appreciated the bilateral upper extremities with shoulder elevation , shoulder abduction, elbow extension, elbow flexion, wrist extension, wrist flexion, 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 5/5 strength appreciated the bilateral lower extremities with hip flexion, knee extension, knee flexion, plantarflexion, dorsiflexion, EHL, FHL Reflexes: 2/4 in all UE and LE Negative Rachid's bilaterally Clonus bilaterally Special Test: Positive straight leg raise left lower extremity Negative straight leg raise right lower extremity Results - Labs Labs: Abnormal Lab Results - Last 24 Hours (Table) 06/16/24 06/16/24 Range/Units 05:12 05:12 WBC 12.91 H (4.50-10.00) X 10*3/uL RBC 3.88 L (4.10-5.20) X 10*6/uL Hgb 11.7 L (12.0-15.0) g/dL Hct 37.1 L (37.2-46.3) % MCHC 31.5 L (32.0-37.0) g/dL MPV 9.0 L (9.5-12.2) FL Immature Gran # 0.12 H (0.00-0.04) X 10*3/uL Monocytes # 1.24 H (0.20-1.00) X 10*3/uL Eosinophils # 0.69 H (0.04-0.35) X 10*3/uL AST 76 H (13-35) U/L ALT 399 H (8-44) U/L H & H 06/13/24 06/14/24 06/15/24 Range/Units 21:24 10:49 08:20 Hgb 13.2 11.1 L 10.8 L (11.4-16.0) gm/dL Hct 42.8 35.4 35.9 (34.0-46.0) % 06/16/24 Range/Units 05:12 Hgb 11.7 L (11.4-16.0) gm/dL Hct 37.1 L (34.0-46.0) % Result Diagrams: 06/16/24 05:12 06/16/24 05:12 - Diagnostic results CT Scan - lumbar: report reviewed, image reviewed (Images and reports were reviewed of the 06/07/2024 scan, no acute fractures or dislocations noted. Report noted disc bulging in the L4-L5, L5-S1 region with more left-sided foraminal stenosis noted at L5-S1) Assessment and Plan Assessment: Low back pain Left lower extremity radiculopathy Other medical comorbidities Plan: I was able to discuss the case, this to include physical exam findings and imaging studies with my attending Dr. Shields. Due to the severity of the pain along with all current treatment modalities not helping with her symptoms, MRI without contrast of the lumbar spine was ordered on 06/15/2024, she is undergoing that test on 06/16/2024 at 2 PM High concern for herniated disc in the L5-S1 region 5 mg of IV Valium has been ordered to get prior to the MRI Pain control, continue current medications DVT prophylaxis per primary medical service Other medical specialties appreciated Further recommendations to follow Time with Patient: Less than 30
--- NOTE | 2024-06-16 15:40 | MR ---
INDICATION: Patient age:Female; 33 years old; Reason for study: intractable back pain; PHH. COMPARISONS: CT lumbar spine 06/07/2024, lumbar spine radiograph 06/05/2024. TECHNIQUE: Multi planar, multi sequence imaging was performed utilizing: T1-weighted, T2-weighted, a nd turbo inversion recovery imaging of the lumbar spine. The patient was not given contrast. FINDINGS: The lumbar vertebral bodies do have preserved heights and alignment. Mild disc desiccatio n with height loss at L5-S1. The conus medullaris and the distal spinal cord do appear unremarkable with regards to their signal intensity and morphology. Increased STIR signal identified within the L4 -L5 and L5-S1 interspinous ligaments. L1-L2: No significant disc pathology is identified. The spinal canal and neural foramen are patent. L2-L3: No significant disc pathology is identified. The spinal canal and neural foramen are patent. L3-L4: No significant disc pathology is identified. The spinal canal and neural foramen are patent. L4-L5: No significant disc pathology is identified. The spinal canal and neural foramen are patent L5-S1: Left subarticular zone disc protrusion with caudal migration of approximately 6 mm. This abuts the exiting left L5 nerve root. Superimposed upon a broad-based disc bulge with minimal central bud l stenosis.. Right neural foramen is patent. Mild to moderate left neural foraminal stenosis. Other significant findings: None. IMPRESSION: 1. L5-S1 left subarticular zone disc protrusion with caudal migration resulting in mild to moderate neural foraminal stenosis and abutment of the exiting left L5 nerve root. 2. Mild edematous changes involving the L4-L5 and L5-S1 interspinous ligaments. [facility], , 06/16/2024 3:37 PM
[2024-06-16] MEDS ORDERED: HYDROcodone/APAP 5-325MG 1 EACH TAB PO PRN (16:45)
[2024-06-16] MEDS: MAGNESIUM CITRATE 296 ML BOTTLE PO ONE (16:50)
[2024-06-16] MEDS: PREGABALIN 75 MG CAP PO SCH (17:21)
[2024-06-16] MEDS: HYDROcodone/APAP 10-325MG 1 EACH TAB PO SCH (17:21)
[2024-06-16] MEDS: ACETAMINOPHEN IV (For NPO) 1,000 MG in EMPTY BAG 1 BAG IVPB SCH (18:24)
[2024-06-16] MEDS: DEXAMETHASONE SOD PHOSPHATE 20 MG in DEXTROSE 5% IN WATER 50 ML IV STA (18:24)
[2024-06-17] MEDS: 0.9% NACL WITH KCL 20 MEQ/L 1,000 ML IV ONE (00:23)
[2024-06-17] MEDS: ONDANSETRON 4 MG/2 ML VIAL IVP PRN (04:19)
[2024-06-17] MEDS ORDERED: TRANEXAMIC ACID 1,000 MG in SODIUM CHLORIDE 0.9% 100 ML IVPB PRN (06:00)
--- NOTE | 2024-06-17 08:16 | P.PN ---
Progress Note - Text Progress Note Date: 06/17/24 Patient seen this morning. Patient is resting comfortably in bed. She does report that her pain and symptoms have been managed on current regimen. Patient states that she is wanting to proceed with surgery that is scheduled later today, L5-S1 microdiscectomy. Patient has remained n.p.o. since midnight. Discussed with patient depending on the time of her surgery that if she is feeling okay and safe going home she may possibly be discharged later today versus tomorrow 06/18/2024. Patient verbalizes understanding.
[2024-06-17 10:50] LABS: Basophils # (A) 0.02 X 10*3/uL (0.00-0.10); Basophils % (A) 0.2 %; Eosinophils # (A) 0 X 10*3/uL (0.04-0.35); Eosinophils % (A) 0 %; HCT 36.4 % (37.2-46.3); HGB 11.7 g/dL (12.0-15.0); Lymphocytes # (A) 0.77 X 10*3/uL (0.90-5.00); Lymphocytes % (A) 6.8 %; MCH 30.5 pg (27.0-32.0); MCHC 32.1 g/dL (32.0-37.0); MCV 94.8 FL (80.0-97.0); Mean Platelet Volume 9.2 FL (9.5-12.2); Monocytes # (A) 0.25 X 10*3/uL (0.20-1.00); Monocytes % (A) 2.2 %; NRBC Per 100 WBC 0 X 10*3/uL (0.00-0.01); Neutrophils # (A) 10.18 X 10*3/uL (1.80-7.70); Neutrophils % (A) 89.7 %; Platelet Count 317 X 10*3/uL (140-440); RBC 3.84 X 10*6/uL (4.10-5.20); RDW 13.1 % (11.5-14.5); WBC 11.34 X 10*3/uL (4.50-10.00)
[2024-06-17 11:35] LABS: ALT 361 U/L (8-44); AST 71 U/L (13-35); Albumin/Globulin Ratio 1.54 Ratio (1.60-3.17); Alkaline Phosphatase 90 U/L (41-126); BUN/Creat Ratio 13.17 Ratio (12.00-20.00); Blood Urea Nitrogen 7.9 mg/dL (9.0-27.0); Calcium 8.9 mg/dL (8.7-10.3); Carbon Dioxide 24.6 mmol/L (21.6-31.8); Chloride 100 mmol/L (96-109); Globulin 2.6 g/dL (1.6-3.3); Glucose 181 mg/dL (70-110); Potassium 4.9 mmol/L (3.5-5.5); Sodium 135 mmol/L (135-145); Total Bilirubin 0.2 mg/dL (0.3-1.2); Total Protein 6.6 g/dL (6.2-8.2)
--- NOTE | 2024-06-17 14:46 | P.PN ---
Subjective Progress Note Date: 06/17/24 Patient is a 33-year-old female with no known PMH who presents to the emergency room with complaints of left lower back pain with radiation into her left leg. Patient notes her symptoms started roughly 6 weeks ago and gradually progressed. She was seen at her PCPs office where she was given oral steroids and pain medication. The patient was subsequently seen in the emergency room on 06/07 where a lumbar spinal CT revealed mild disc bulges from L4-S1 with mild to moderate foraminal narrowing at the L5-S1. She was given an oral course of prednisone and was discharged home. Patient notes however that her pain has persisted and is not being controlled with [id number] Tylenol and Motrin. She reports taking extra strength Tylenol 4-5 times a day over the past several weeks. Orthopedic surgery consulted, MRI L spine showed L5-S1 left subarticular zone disc protrusion with caudal migration resulting in mild-mod neural formainal stenosis. 06/17 Patient was seen and examined. Pain well controlled. Plans for L5-S1 microdiscectomy. CBC and BMP significant for WBC 11.34, RBC 3.84, Hg 11.7, Hct 36.4, BUN 7.9, glu 181, T. Bili 0.2, AST 71, ALT 361. General: non toxic, no distress, appears at stated age Derm: warm, dry Head: atraumatic, normocephalic, symmetric Eyes: EOMI, no lid lag, anicteric sclera Mouth: no lip lesion, mucus membranes moist Cardiovascular: S1S2 reg, no murmur Lungs: CTA bilateral, no rhonchi, no rales , no accessory muscle use Ext: no gross muscle atrophy, no edema, no contractures Neuro: no focal neuro deficits Psych: Alert and oriented. Based on my assessment of this patient, this patient meets a high complexity level of care. Intractable left lower back pain with radicular symptoms: Plans for L5-S1 microdiscectomy today with Orthopedic Sx today. Flexeril 10 mg PO TID PRN. Dilaudid 1 mg IV Q3H PRN. [place] 5-10 Q4-6H PO PRN. Lyrica 150 mg PO TID. Trama dol 100 mg PO TID. Leukocytosis likely due to ongoing steroid use Transaminitis, possibly secondary to Tylenol use Hepatic steatosis Constipation: Senna 8.6 mg PO BID PRN. Miralax 17g PO QD. CODE STATUS: FULL CODE. DVT Prophylaxis: Lovenox SQ GI Prophylaxis: Protonix PO Designated medical POA if patient is not able to make medical decisions for themselves: I have reviewed the following weight loss sales consultant notes: Ortho. I have reviewed the results of the following tests: CBC, CMP. I have ordered the following tests: I have discussed the care of this patient with the following independent historian: RN. I have independently interpreted the following test below: I have discussed the management of this patient with the following physician: Objective - Vital Signs Vital signs: Vital Signs Temp 99.2 F 06/17/24 13:15 Pulse 106 H 06/17/24 13:15 Resp 17 06/17/24 13:15 BP 135/81 06/17/24 13:15 Pulse Ox 95 06/17/24 13:15 FiO2 Intake & Output 06/16/24 06/17/24 06/17/24 18:59 06:59 18:59 Intake Total 500 Balance 500 Intake: Intake, IV Titration 500 Amount 0.9% NaCl with KCl 20 Meq 300 /l 1,000 ml @ 50 mls/hr IV .Q20H ONE Rx#: [id number] ACETAMINOPHEN IV (For NPO 200 ) 1,000 mg In Empty Bag 1 bag @ 400 mls/hr IVPB Q6HR JOANA Rx#:[id number] Other: Voiding Method Toilet Toilet Toilet # Voids 4 3 - Labs CBC & Chem 7: 06/17/24 06:05 06/17/24 06:05 Labs: Abnormal Lab Results - Last 24 Hours (Table) 06/17/24 06/17/24 Range/Units 06:05 06:05 WBC 11.34 H (4.50-10.00) X 10*3/uL RBC 3.84 L (4.10-5.20) X 10*6/uL Hgb 11.7 L (12.0-15.0) g/dL Hct 36.4 L (37.2-46.3) % MPV 9.2 L (9.5-12.2) FL Immature Gran # 0.12 H (0.00-0.04) X 10*3/uL Neutrophils # 10.18 H (1.80-7.70) X 10*3/uL Lymphocytes # 0.77 L (0.90-5.00) X 10*3/uL Eosinophils # 0 L (0.04-0.35) X 10*3/uL BUN 7.9 L (9.0-27.0) mg/dL Glucose 181 H (70-110) mg/dL Total Bilirubin 0.2 L (0.3-1.2) mg/dL AST 71 H (13-35) U/L ALT 361 H (8-44) U/L Albumin/Globulin Ratio 1.54 L (1.60-3.17) Ratio
[2024-06-17] MEDS: IV FLUID CONTINUATION 1,000 ML IV ONE (17:20)
--- NOTE | 2024-06-17 17:22 | P.PN ---
Progress Note - Text Progress Note Date: 06/17/24 Spine Surgery Clinical and Risk Review YOKO OSBORNE is a 33 YO FEMALE presenting for evaluation of LOW BACK AND SEVERE LLE PAIN. It was my pleasure to have seen and examined YOKO OSBORNE. In our visit today we have had a chance to go over subjective complaints, physical examination findings and treatments including the natural course history without intervention and various interventional options. 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 Based on the patients imaging, physical exam, and the rapid progression and disabling nature of their symptoms, at this time I recommend surgery in the form of a: L5-S1 LAMINOFORAMINOTOMY WITH MICRODISCECOMTY I discussed the risk and benefits of this procedure at length with YOKO OSBORNE. The patient and family agreed to consider pursuing the procedure above mentioned. Prior to surgery, they should follow up with her PCP (Cardio, ID, IM etc) for clearance. Questions were invited and answered, and the patient wishes to proceed as outlined below. Currently, I am recommendin. procedure 2. Obtain appropriate presurgical workup and clearances as discussed with the patient. 3. Review of surgical risks and benefits as well as an educational packet on the proposed surgical procedure. Risks: All surgical procedures come with inherent risks, including those related to positioning, anesthesia, intraoperative findings, and postoperative complicat ions. It is important to understand that surgery does not come with any guarantee of a successful outcome as complications and adverse events are always possible. The patient was given a handout in the office today discussing the surgical procedure and risks associated with the intervention, both of which were discussed with the patient. These risks include but are not limited to the following: Experiencing same, different or even worse symptoms in back, neck, arms, or legs compared to before surgery. Requiring further surgery or other forms of treatment presently or at some time in the future at same or other levels of the intended spine surgery. On an extreme but fortunately relatively rare basis severe complications such as blindness, stroke, heart attack, temporary and/or permanent nerve injury, paralysis, coma, or may occur, sometimes without known explanation. Surgical complications may include but are not limited to risk of infection, fluid accumulation in the surgical dissection site, including a seroma or hematoma, that requires additional surgery, wound drainage, bleeding, new numbness or weakness, vision changes/loss, spinal fluid leakage, non-healing and/or infected incision, headaches, difficulty or inability to swallow, hoarseness, hemopneumothorax, pneumothorax, impotence, retrograde ejaculation, vaginal dryness; injury to nerves, spinal cord, blood vessels, lymphatics or other vital organs (i.e., bowel injury, injury to the great vessels); heterotopic bone formation; complications related to the hardware such as screws, rods, cages including misplaced hardware, device failure, instrumentation at the wrong spine level, hardware fracture/breakage, or hardware loosening; vertebral failure of the spinal column above or below the newly placed hardware; retained surgical instrumentations or devices and the need for further surgery. Medical risks of the planned spine surgery include but are not limited to generalized Infections to the whole body or local areas outside of the surgical site (sepsis), heart attack, bleeding, anaphylaxis, meningitis, seizure, epilepsy, hearing loss, burn ya, laceration of the head or other areas of the body, bruising, hypersensitivity of the skin, bladder over distension; allergic reaction; shoulder injury related to positioning; fat, blood and air clots to other areas of the body like heart, lungs, brain; failure of internal organs such as lungs, kidneys, liver and excessive bleeding. If blood transfusions are necessary, note that transfusions may cause intolerance reactions such as anaphylaxis or other complex reactions. Despite best efforts, the results of spine surgery might not heal in terms of bone, soft tissues such as skin, fascia, ligaments, and joints. Additionally, in order to achieve best possible results, spine surgery may be carried out beyond the initially planned levels and involve decompression, fusion including insertion of hardware at levels other than the original intended area of surgical interest change some portions of the procedure in order to ensure the best possible outcomes. With spine surgery and spinal fusion, there are different off label uses of instrumentation (devices, implants and hardware) as well as biological substances (bone morphogenic proteins, demineralized bone matrix) as well as usi ng extra bone from allograft sources (i.e. cadaver bone) or autograft (iliac crest bone, ribs, or the spine itself). The patient has been given information about these practices and their inherent risks and benefits. The patient has had a chance to review all the listed information, has been given print outs detailing this information, and has had all his/her questions answered to their satisfaction. It was my pleasure to have seen and examined YOKO OSBORNE. In our visit today we have had a chance to go over my understanding of our patient's current condition, the natural course history without intervention and various interventional options. Questions were invited and answered, and the patient wishes to proceed as outlined above. I have seen and examined the patient for 25 minutes and we have spent more than 50% of the time in repeat and detailed counseling about the patient's condition, its natural course history without and as much as can be predicted with surgery and re-review of various surgical treatment options. In conclusion, YOKO OSBORNE and their family requested we proceed with the above suggested surgery and are willing to accept risks and limitations of the suggested surgery as the nature of the disease process and our best attempts at treatment for the condition. Thank you again for allowing us to be part of your patient's care. Please don't hesitate to contact me if you have any further questions. Signed and authenticated by: Hai Patino [facility] [address] [address]
[2024-06-17] MEDS: DEXAMETHASONE SOD PHOSPHATE 4 MG/ML 1 ML VIAL IVP STA (17:33)
[2024-06-17] MEDS: SCOPOLAMINE 1 MG/72 HR PATCH TRANSDERM STA (17:38)
[2024-06-17] MEDS ORDERED: TRANEXAMIC 1,000 MG/100ML-NACL PREMIX BAG ONE (18:15)
[2024-06-17] MEDS ORDERED: HYDROmorphone (PF) 1 MG/ML ONE (18:15)
[2024-06-17] MEDS ORDERED: NEOSTIGMINE 1 MG/ML 10 ML VIAL ONE (18:15)
[2024-06-17] MEDS ORDERED: ROCURONIUM 10 MG/ML (5 ML VIAL) IV ONE (18:15)
[2024-06-17] MEDS ORDERED: fentaNYL (PF) 50 MCG/ML 2 ML AMP ONE (18:15)
[2024-06-17] MEDS ORDERED: SUCCINYLCHOLINE CHLORIDE 200 MG/10 ML VIAL IV ONE (18:15)
[2024-06-17] MEDS ORDERED: MIDAZOLAM 2 MG/2 ML VIAL ONE (18:15)
[2024-06-17] MEDS ORDERED: GLYCOPYRROLATE 0.2 MG/ML 2 ML VIAL ONE (18:15)
[2024-06-17] MEDS ORDERED: KETAMINE HCL IN 0.9 % NACL 50 MG/5 ML SYRINGE ONE (18:15)
[2024-06-17] MEDS ORDERED: ONDANSETRON 4 MG/2 ML VIAL ONE (18:15)
[2024-06-17] MEDS ORDERED: PROPOFOL 10 MG/ML 20 ML VIAL IV ONE (18:15)
[2024-06-17] MEDS ORDERED: LIDOCAINE 1% INJ 10MG/ML (20 ML MDV) ONE (18:15)
[2024-06-17] MEDS: SODIUM CHLORIDE 0.9% 50 ML with ceFAZolin 2,000 MG IV ONE (18:30)
[2024-06-17] MEDS: LIDOCAINE 2%-EPI 1:100,000 20 ML VIAL SQ ONE (18:51)
[2024-06-17] MEDS: BUPIVACAINE (PF) 0.5% 30 ML VIAL SQ ONE (18:51)
[2024-06-17] MEDS: THROMBIN (BOVINE) 5,000 UNIT VIAL MISCELLANE ONE (19:02)
--- NOTE | 2024-06-17 20:08 | FL ---
EXAMINATION TYPE: FL guidance operating room, XR lumbar spine 2 or 3V DATE OF EXAM: 06/17/2024 8:02 PM COMPARISON: Pre Operative Images if available both CT/MRI or plain film CLINICAL INDICATION: Female, 33 years old with history of L5-S1 Microdisectomy; TECHNIQUE: FL guidance operating room, XR lumbar spine 2 or 3V, multiple fluoroscopic images provided for procedure. Total fluoroscopy time: 5.48 seconds Total submitted images to PACS: 6 DAP: [id number] mGym2 Gycm2 uGym2 cGycm2 or equivalent. FINDINGS: Fluoroscopic images during surgery, no evidence for acute process. Multilevel degeneration changes of the spine. IMPRESSION: 1. No evidence for intraoperative complication. 2. Please see the operative/procedural note for further details. [facility], , 06/17/2024 8:06 PM
--- NOTE | 2024-06-17 20:09 | P.PN ---
Progress Note - Text Progress Note Date: 06/17/24 BRIEF POST OP DX: L5-S1 HNP WITH LLE RADICULOPATHY PROCEDURE: L5-S1 LAMINOFORAMINOTOMY WITH MICRODISCECOMTY SURGEON: DANIKA ANESTHESIA: GETA EBL: 20 cc FLUIDS: 1000 cc URINE: 0 cc COMPLICATION: NONE DISPO: STABLE TO PACU PLAN: -UP AND ABOUT WHEN ABLE -DANGLE AT BEDSIDE -NO BLTPP 10 LBS OR LESS -PAIN CONTROL PRN -PLAN FOR HOME TOMORROW AM
[2024-06-17] MEDS: PREGABALIN 75 MG CAP PO SCH (21:29)
[2024-06-17] MEDS: SENNOSIDES 8.6 MG TAB PO PRN (23:39)
[2024-06-18 01:55] VITALS: BP 117/65
[2024-06-18 05:44] LABS: HCT 36.2 % (34.0-46.0); HGB 11.2 gm/dL (11.4-16.0); MCH 29.9 pg (25.0-35.0); MCV 96.5 fL (80.0-100.0); Mean Platelet Volume 6.6; Platelet Count 384 k/uL (150-450); RBC 3.76 m/uL (3.80-5.40); RDW 13.1 % (11.5-15.5); WBC 31.2 k/uL (3.8-10.6)
[2024-06-18 06:01] LABS: African American GFR (CKD) >90 (>60 ml/min/1.73 sqM); Anion Gap 9 mmol/L; Blood Urea Nitrogen 12 mg/dL (7-17); Calcium 8.8 mg/dL (8.4-10.2); Carbon Dioxide 24 mmol/L (22-30); Chloride 102 mmol/L (98-107); Glucose 136 mg/dL (74-99); Non-African American GFR(CKD) >90 (>60 ml/min/1.73 sqM); Sodium 135 mmol/L (137-145)
[2024-06-18 06:16] VITALS: PULSE 112; RESP 12; TEMP 99
[2024-06-18 06:29] LABS: Band Neutrophils % 1 %; Lymphocytes # (M) 3.74 k/uL (1.0-4.8); Monocytes # (M) 1.87 k/uL (0-1.0); Neutrophils % (M) 81 %; Nucleated Red Blood Cells 0 /100 WBC (0-0); RBC Morphology Normal; Total Cells Counted 200
--- NOTE | 2024-06-18 07:07 | P.OP ---
Date of Procedure: 06/17/24 Preoperative Diagnosis: 1. L5-S1 PARACENTRAL HNP WITH DISC EXTRUSION 2. LLE RADICULOPATHY SEVERE 3. LLE WEAKNESS 4. LOW BACK PAIN Postoperative Diagnosis: 1. L5-S1 PARACENTRAL HNP WITH DISC EXTRUSION 2. LLE RADICULOPATHY SEVERE 3. LLE WEAKNESS 4. LOW BACK PAIN Procedure(s) Performed: 1. L5-S1 LEFT LAMINOFORAMINOTOMY WITH MICRODISCECOMTY (07139) USE OF IO MICROSCOPE Implants: NONE Anesthesia: GETA Surgeon: Hai Shields Tour Production Supervisor #1: Nisha Hong (WAS PRESENT AND ASSISTED WITH ALL ASPECTS OF THE CASE FROM POSITION TO DRESSING PLACEMENT) Estimated Blood Loss (ml): 20 IV fluids (ml): 1,000 Urine output (ml): 0 Pathology: none sent Condition: stable Disposition: PACU Indications for Procedure: YOKO OSBORNE is a 33 YO FEMALE presenting for evaluation of LOW BACK AND SEVERE LLE PAIN. It was my pleasure to have seen and examined YOKO OSBORNE. In our visit today we have had a chance to go over subjective complaints, physical examination findings and treatments including the natural course history without intervention and various interventional options. 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 Based on the patients imaging, physical exam, and the rapid progression and disabling nature of their symptoms, at this time I recommend surgery in the form of a: L5-S1 LAMINOFORAMINOTOMY WITH MICRODISCECOMTY I discussed the risk and benefits of this procedure at length with YOKO OSBORNE. The patient and family agreed to consider pursuing the procedure above mentioned. Prior to surgery, they should follow up with her PCP (Cardio, ID, IM etc) for clearance. Questions were invited and answered, and the patient wishes to proceed as outlined below. Currently, I am recommendin. L5-S1 LAMINOFORAMINOTOMY WITH MICRODISCECOMTY Description of Procedure: L5-S1 MINIMALLY INVASIVE LAMINOFORAMINOTOMY WITH MICRODISCECOMTY (LEFT) The patient was seen and examined in the preoperative area. All preoperative protocols were followed. Informed consent was obtained, risks and benefits of the procedure were discussed at length. Risks including bleeding infection damage to the surrounding tissue and risk of reoperation were discussed with the patient. Risk of anesthesia up to and including was discussed with the patient. These are outlined in the risk review. They were willing to accept these risks and all the risks of surgery. The patient was given a weight-based dose of antibiotics in the form of 2 g Ancef. The patient was seen and evaluated by the anesthesia team who deemed them fit for surgery. The site was marked, the patient was willing to proceed with the procedure. The patient was transferred to the operative suite by the Department of anesthesia. They were then drifted off to sleep by the department anesthesia and GETA was performed. The patient tolerated this well. Spear catheter was placed by nursing staff, a-traumatically. Once confirmation of lines and ventilation the patient was transferred to a prone Liborio table very carefully. All bony prominences including wrists, elbows, axilla, chest, hips, and thighs, and feet were padded very well. Special attention was paid to the genitalia, and these were padded accordingly. SCDs were placed on bilateral lower extremities and were connected. Arms were well padded and placed on arm boards up and out in the 90/90 position. Once in position, again we confirmed good ventilation capabilities and that lines were running appropriately. The patient s Lumbar spine was then exposed. 1010s were placed outlining the incision site. Standard alcohol was used to clean the incision site and allowed to dry. C-arm was used to needle localize the pedicles at L5-S1 and bio-eileen the patient and confirm level for incision which was marked with a skin marker. Operative briefing was performed with all teams and everyone in agreement to proceed. The patient was then prepped and draped in a normal sterile fashion. Timeout was then performed, and all parties agreed with the procedure to be performed. Skin incision was made over the previously marked area. Fluoroscopy was then used to target the lamina and facet joints on the left hand side of L5-S1 and initial dilator for the tubular retractor system was used to identify this area. Once in a good position, sequential dilation was taken up to 26 mm and tube selected. A 90 mm tube was then placed and secured to the table. This was confirmed to be in good position on AP and Lateral imaging. Limited myomectomy was then done to identify the lamina, interlaminar space, and facet joints. Masood-laminotomy, partial medial facetectomy and foraminotomy were performed at L5-S1 using high speed harman and Kerrison rongeur. The ligamentum flavum was removed with Kerrison and curette. Dura and roots protected. The disc space was identified along with the herniation. There was extrusion of the fragmen caudally and this was removed easily. Then, 11 blade was used to make small annulotomy and micro-pituitary used to remove any loose disc fragments. Once fragments were removed, down biting curette was used to push any medial fragments down and towards the annulotomy and decompress centrally. The disc space was irrigated, and any loose fragments removed again. Bipolar was used for hemostasis and scarring of the annulotomy. The area was irrigated, and meticulous hemostasis performed. The bed was inspected, and all roots have ample room and are decompressed along with the dura. There were no injuries. Retractors were then removed. The wound was copiously irrigated with NSS. The deep fascia was closed with 0 vicryl. Deep sub-q with 0 Vicryl and superficial with 2-0 Vicryl. Skin closed with blair. The wound edges approximated well. The wound was then cleaned, and glue tape placed on the skin and allowed to dry. It was then covered with an Opifoam dressing. The patient was then transferred off the table back to their hospital bed a- traumatically. They were extubated by the department of anesthesia. They were then transferred to PACU in stable condition having tolerated the procedure with no complications.
--- NOTE | 2024-06-18 08:12 | P.PN ---
Subjective Progress Note Date: 06/18/24 Principal diagnosis: Low back pain Patient seen and examined this morning. Patient is resting comfortably in bed. She does report that her pain is managed on current regimen. Patient states she has notable improvement in her low back pain and left lower extremity radiculopathy since the procedure. Patient denies any pain into the left leg at this time. She states that she has been ambulatory within room to the restroom and tolerating activity well. Discussed discharge instructions with patient, patient verbalizes understanding. Patient is cleared from an orthopedic standpoint for discharge when medically stable. Objective - Vital Signs Vital signs: Vital Signs Temp 99.0 F 06/18/24 06:15 Pulse 112 H 06/18/24 06:15 Resp 12 06/18/24 06:15 BP 117/65 06/18/24 06:15 Pulse Ox 97 06/18/24 06:15 FiO2 Intake & Output 06/17/24 06/18/24 06/18/24 18:59 06:59 18:59 Intake Total 550 1080 Output Total 20 Balance 550 1060 Intake: IV 550 0 Oral 1080 Output: Estimated Blood Loss 20 Other: Voiding Method Toilet Toilet # Voids 2 2 - Exam Physical Examination General: The patient is awake and alert, in no acute distress. Skin: Skin is warm and dry with no obvious rashes or lesions. Surgical incision to the left lateral lumbar spine, dressing is clean dry and intact. Eye: Pupils are equal, round and reactive to light, extra-ocular movements are intact; there is normal conjunctiva bilaterally. Neck: The neck is supple, there is no tenderness and ROM intact. Respiratory: Respirations are non-labored. Gastrointestinal: Soft, non-distended, non-tender abdomen. Back: There is no tenderness to palpation in the midline, paralumbar, paratho racic or buttocks region. There is no obvious deformity. Musculoskeletal: ROM limited secondary to pain and stiffness from surgical procedure. Right: Shoulder abduction 5/5, elbow flexors 5/5, wrist dorsiflexors 5/5. finger abductor 5/5, diamond expert 5/5, hip flexor 5/5, knee flexor 5/5, ankle dorsiflexor 5/5, ankle plantarflexion 5/5 and extensor hallucis 5/5 Left: Shoulder abduction 5/5, elbow flexors 5/5, wrist dorsiflexors 5/5. finger abductor 5/5, diamond expert 5/5, hip flexor 4/5, knee flexor 4/5, ankle dorsiflexor 5/5, ankle plantarflexion 5/5 and extensor halluci s 5/5. Neurological: CN 2-12 intact. There are no obvious motor or sensory deficits. Movement and coordination equal and intact. Sensory exam to light touch intact C5-T1 and intact from L2-S1. Reflexes 2/4 in bilateral upper and lower extremities. Negative Hoffmans, babinski, and clonus signs. Psychiatric: Cooperative, appropriate mood & affect, normal judgment. - Labs CBC & Chem 7: 06/18/24 05:13 06/18/24 05:13 Labs: Abnormal Lab Results - Last 24 Hours (Table) 06/17/24 06/17/24 06/18/24 Range/Units 06:05 06:05 05:13 WBC 11.34 H 31.2 H (4.50-10.00) X 10*3/uL RBC 3.84 L 3.76 L (4.10-5.20) X 10*6/uL Hgb 11.7 L 11.2 L (12.0-15.0) g/dL Hct 36.4 L (37.2-46.3) % MPV 9.2 L (9.5-12.2) FL Immature Gran # 0.12 H (0.00-0.04) X 10*3/uL Neutrophils # 10.18 H (1.80-7.70) X 10*3/uL Neutrophils # (Manual) 25.50 H (1.3-7.7) k/uL Lymphocytes # 0.77 L (0.90-5.00) X 10*3/uL Monocytes # (Manual) 1.87 H (0-1.0) k/uL Eosinophils # 0 L (0.04-0.35) X 10*3/uL Sodium (137-145) mmol/L BUN 7.9 L (9.0-27.0) mg/dL Glucose 181 H (70-110) mg/dL Total Bilirubin 0.2 L (0.3-1.2) mg/dL AST 71 H (13-35) U/L ALT 361 H (8-44) U/L Albumin/Globulin Ratio 1.54 L (1.60-3.17) Ratio 03/05/25 Range/Units 05:13 WBC (4.50-10.00) X 10*3/uL RBC (4.10-5.20) X 10*6/uL Hgb (12.0-15.0) g/dL Hct (37.2-46.3) % MPV (9.5-12.2) FL Immature Gran # (0.00-0.04) X 10*3/uL Neutrophils # (1.80-7.70) X 10*3/uL Neutrophils # (Manual) (1.3-7.7) k/uL Lymphocytes # (0.90-5.00) X 10*3/uL Monocytes # (Manual) (0-1.0) k/uL Eosinophils # (0.04-0.35) X 10*3/uL Sodium 135 L (137-145) mmol/L BUN (9.0-27.0) mg/dL Glucose 136 H (70-110) mg/dL Total Bilirubin (0.3-1.2) mg/dL AST (13-35) U/L ALT (8-44) U/L Albumin/Globulin Ratio (1.60-3.17) Ratio Assessment and Plan Assessment: Postop day 1: L5-S1 minimally invasive left laminoforaminotomy with microdiscectomy Plan: -Appreciate peoplesoft hcm consultant and team management. -Activity: Ambulate QID, OOB all meals, up and about, limit lifting bending twisting to less than 5 lbs. Use walker or cane if needed for stability. -Daily PT/OT, increase ambulation strength and balance. -Pain control: Adequate at this time -Meds: reviewed -GI ppx: senna, Miralax -DVT PPX: Aspirin 81mg daily -Hygiene: Maintain incision clean and dry. May change dressing as needed, please document in notes if performed. -Encourage IS 10x/hr -Dispo: Patient is cleared from an orthopedic standpoint for discharge when medically stable. *I reviewed and discussed this case with my attending Dr. Shields, whom has reviewed this chart and films and is in agreement with assessment and plan of care as outlined above. I have personally seen and examined the patient, performed the documentation and the assessment and plan as written. Number of minutes spent on the visit: 20m.
[2024-06-18] MEDS: CHOLECALCIFEROL 125 MCG (5000 IU) TABLET PO SCH (08:26)
[2024-06-18] MEDS: ENOXAPARIN 40 MG/0.4 ML SYRINGE SQ SCH (08:27)
--- NOTE | 2024-06-18 15:44 | P.DS ---
Providers Date of admission: 06/14/24 01:14 Expected date of discharge: 06/18/24 Attending physician: Cory Madrid MD Consults: 06/15/24 09:37 Consult Physician Routine Consulting Provider: Hai Shields Consult Reason/Comments: intractable lower back pain Do you want consulting provider notified?: Yes Primary care physician: [facility] Course: Patient is a 33-year-old female with no known PMH who presents to the emergency room with complaints of left lower back pain with radiation into her left leg. Patient notes her symptoms started roughly 6 weeks ago and gradually progressed. She was seen at her PCPs office where she was given oral steroids and pain medication. The patient was subsequently seen in the emergency room on 06/[address] a lumbar spinal CT revealed mild disc bulges from L4-S1 with mild to moderate foraminal narrowing at the L5-S1. She was given an oral course of prednisone and was discharged home. Patient notes however that her pain has persisted and is not being controlled with [id number] Tylenol and Motrin. She reports taking extra strength Tylenol 4-5 times a day over the past several weeks. Orthopedic surgery consulted, MRI L spine showed L5-S1 left subarticular zone disc protrusion with caudal migration resulting in mild-mod neural formainal stenosis. 06/17 Patient was seen and examined. Pain well controlled. Plans for L5-S1 microdiscectomy. CBC and BMP significant for WBC 11.34, RBC 3.84, Hg 11.7, Hct 36.4, BUN 7.9, glu 181, T. Bili 0.2, AST 71, ALT 361. 06/18 Patient was seen and examined. Feeling better. Underwent L5-S1 microdiscectomy with Dr. Shields yesterday. CBC and BMP significant for WBC 31.2, RBC 3.76, Hg 11.2, Na 135, glu 136. Cleared for discharge. Discharge Plan: Follow up with PCP on 06/[address] Shields on 06/24. General: non toxic, no distress, appears at stated age Derm: warm, dry Head: atraumatic, normocephalic, symmetric Eyes: EOMI, no lid lag, anicteric sclera Mouth: no lip lesion, mucus membranes moist Cardiovascular: S1S2 reg, no murmur Lungs: CTA bilateral, no rhonchi, no rales , no accessory muscle use Ext: no gross muscle atrophy, no edema, no contractures Neuro: no focal neuro deficits Psych: Alert and oriented. Discharge Plan: Intractable left lower back pain with radicular symptoms Leukocytosis likely due to ongoing steroid use Transaminitis, possibly secondary to Tylenol use Hepatic steatosis Constipation This complex discharge took 35 minutes to complete. Patient Condition at Discharge: Stable Plan - Discharge Summary Discharge Rx Participant: No New Discharge Prescriptions: New cefaDROXiL [Duricef] 500 mg PO Q12HR #10 cap Cyclobenzaprine [Flexeril] 10 mg PO TID PRN #40 tab PRN Reason: Muscle Spasm Sennosides/Docusate Sodium [Senna Plus 8.6-50 mg Tablet] 2 each PO DAILY PRN #20 tab PRN Reason: Constipation Pregabalin [Lyrica] 150 mg PO BID #60 cap Naproxen [Naprosyn] 500 mg PO BID #28 tablet HYDROcodone/APAP 10-325MG [Alexander 10-325] 1 tab PO Q4-6H PRN #42 tab PRN Reason: Pain Continue Ketorolac [Toradol] 10 mg PO Q6HR PRN PRN Reason: Pain Phentermine HCl [Adipex-P] 37.5 mg PO DAILY Cyclobenzaprine [Flexeril] 10 mg PO TID PRN PRN Reason: Muscle Spasm Acetaminophen Tab [Tylenol] 500 - 1,000 mg PO Q6HR PRN PRN Reason: Pain Ibuprofen [Motrin] 800 mg PO Q8H PRN PRN Reason: Pain Discharge Medication List Acetaminophen Tab [Tylenol] 500 - 1,000 mg PO Q6HR PRN 06/14/24 [History] Cyclobenzaprine [Flexeril] 10 mg PO TID PRN 06/14/24 [History] Ibuprofen [Motrin] 800 mg PO Q8H PRN 06/14/24 [History] Ketorolac [Toradol] 10 mg PO Q6HR PRN 06/14/24 [History] Phentermine HCl [Adipex-P] 37.5 mg PO DAILY 06/14/24 [History] Cyclobenzaprine [Flexeril] 10 mg PO TID PRN #40 tab 06/18/24 [Rx] HYDROcodone/APAP 10-325MG [Alexander 10-325] 1 tab PO Q4-6H PRN #42 tab 06/18/24 [Rx] Naproxen [Naprosyn] 500 mg PO BID #28 tablet 06/18/24 [Rx] Pregabalin [Lyrica] 150 mg PO BID #60 cap 06/18/24 [Rx] Sennosides/Docusate Sodium [Senna Plus 8.6-50 mg Tablet] 2 each PO DAILY PRN #20 tab 06/18/24 [Rx] cefaDROXiL [Duricef] 500 mg PO Q12HR #10 cap 06/18/24 [Rx] Follow up Appointment(s)/Referral(s): Whitney Bolton MD [Primary Care Provider] - 06/24/24 11:40 am Hai Shields DO [Doctor of Osteopathic Medicine] - 06/24/24 2:15 pm (You will see Nisha Hong, please arrive 15 minutes early for paperwork.) Patient Instructions/Handouts: Cefadroxil (By mouth), Hydrocodone/Acetaminophen (By mouth), Naproxen (By mouth), Cyclobenzaprine (By mouth), Laxative, Stimulant (By mouth), Pregabalin (By mouth) Activity/Diet/Wound Care/Special Instructions: Spine Discharge and Recovery Instructions Date of Surgery: 06/17/2024 Diagnosis: L5-S1 left paracentral HNP Procedure: L5-S1 left microdiscectomy Medications: See medication list All medication refills should be obtained through your primary care doctor or your clinic spine surgeon. Please discuss prescription refills at your follow up appointment. Do not call the hospital for medication refills. Activity: Encourage ambulation with assist of walker, Up and about 6-8x daily PT/OT daily work on balance, strength and mobility Up in chair with all meals Shower daily Brace: Use brace when up and about, do not wear in bed or shower Dressing: Leave your dressing in place for a total of 3 days post operatively. Then you may remove your dressing and leave open to air. Keep the area clean and if not able to keep area clean, then cover with sterile gauze and tape. Showering: You may shower 3 days after your procedure allowing soap and water to run over incision. Do not scrub. Do not soak. Blot dry. Follow up: Please confirm a follow up appointment with your surgeon 2 weeks post operatively. Please make an appointment to follow up with your PCP in 1-2 weeks after surgery for evaluation '3 phase, 3-week plan' POST OP WEEKS 1-3 1. Lifting/carrying/pushing/pulling limited to less than 5 pounds. 2. Do not sit for longer than 15 minutes at one time. Get up and walk around. Prolonged sitting is NOT advised. If you lay down, see if you can tolerate laying down on you front (belly side) 3. Walk for periods of 15 minutes = 1 mile but no longer; do it multiple times times each day. 4. Ice your low back after activity. POST OP WEEKS 3-6 1. Lifting limited to less than 20 pounds. 2. Do not sit for longer than 30 minutes at a time. Frequently change positions. Use a sit-to stand workstation or take frequent breaks from sitting if you have returned to work. 3. Walk for 30 minutes each day. If possible, do these three or more times a day POST OP WEEKS 6+ At your 6-week appointment we will give you a physical therapy referral to focus on a core stabilization and strengthening program. You should also work on leg & buttock strengthening, hamstring & quadriceps stretching, and continue a low impact aerobic activity program such as swimming, walking, or riding a stationary bicycle. During the initial 6 weeks after your surgery, you are at the highest risk of re-injuring your spine. You should generally avoid BLT's (bending, lifting and twisting combination motions) and follow the above guidelines to reduce the chance of reinjury. You can anticipate post op appointments in our office at approximately 3 weeks and 6 weeks after your surgery. INCISION CARE: If your incision is not draining you do NOT need to cover it with a dressing. Keep your incision clean, dry and intact. In most cases, we apply skin glue, blair or sutures to the incision at the time of surgery. This will be like a crust or have the appearance of a scab and will fall off in time on its own. The stitches or blair need to be removed at 3 weeks post op appointment. You may begin to shower 3 days after surgery (this allows the glue to kapoor well). However, please avoid scrubbing the incision site or peeling off any of the skin glue. This will ensure optimal healing of your incision. Also, during this time avoid soaking the incision area in water - this includes swimming pools, hot tubs or baths. No ointments, lotions or oils on the incision until your surgeon allows. Leave blair, sutures or glue in place. Neurological dysfunction that comes on suddenly can also be a sign of a stroke. Below some common symptoms of a stroke are listed: B - balance difficulty such as sudden onset walking or leaning to one side - NEW E - eye problem such as sudden double vision or trouble seeing on one side - NEW F - Facial weakness or numbness on one side - NEW A - Arm or leg weakness or numbness on one side - NEW S - Slurred speech or difficulty with word finding - NEW T - Time is BRAIN! Call 911 as soon as you recognize these symptoms Diet: Consume a regular diet rich in vegetables and lean protein such as chicken or fish. You should consume in a ratio of approximately 20% fats|40% carbohydrates|40%protein. Vegetables, sweet potatoes, brown rice or quinoa are examples of good carbohydrates. Chips, white bread, cookies and sweets/sugar are examples of bad carbohydrates. Limit your bad carbs, go wild with good carbs. "Life's Simple 7" Guidelines as per [place] [employer] These will help you reclaim your life after surgery and brass molder helper in your recovery, keeping in mind your restrictions. (1) Get Active. Physical activity can help people lose weight, control high blood pressure and cholesterol, feel emotionally better, and sleep better. (2) Control Cholesterol. Avoid a diet high in saturated fat, trans fat, & cholesterol. Limit whole milk & cream, ice cream, butter, egg yolks, processed meats (like sausage and hot dogs), and fatty meats. Choose healthy foods that are low in saturated fat, trans fat and cholesterol which include: Fruits and vegetables, fiber rich grain products (like whole grain pasta and brown rice), lean meat such as chicken, fish, nuts, seeds, and legumes. (3) Eat Better. Eat small portions. Shop at the grocery with a list and do not stray from it. Tips for a healthy diet include: Limit sodium intake to less than 1500mg daily, avoid prepackaged, processed, and fast foods, choose a diet rich in fruits, vegetables, and whole grain, high fiber foods, and limit saturated & cholesterol in your diet. (4) Manage Blood Pressure. If you have high blood pressure, you should have a cuff at home so that you can check your blood pressure regularly. Be sure you have a good cuff. An arm one is generally better than a wrist one. Bring the cuff to a doctor's appointment to validate that the measurements that your cuff are taking are accurate. Take your blood pressure twice daily when you are sitting down and relaxing. Record the numbers in a log and bring this log with you to your doctors' appointments. (5) Lose Weight if your BMI is above 25. A healthy BMI is between 19-25. To calculate Your BMI, you may use a Standard BMI Calculator on the NIH BMI website: <www.nhlbi.nih.gov/guidelines/obesity/BMI/bmicalc.htm>. Weigh oneself daily. If you are overweight, set a goal to lose weight. A pound a week loss if needed is a good target. (6) Reduce Blood Sugar. Limit foods and liquids with "added sugars." (Added sugars include sucrose, fructose, glucose, maltose, dextrose, high fructose corn syrup, corn syrup, concentrated fruit juice and honey). (7) Stop Smoking. If you smoke, quitting smoking is one of the best things that you can do for your health. Smoking increases your risk of heart attack, stroke, and peripheral vascular disease, which is a build-up of plaque in your arteries. Please discard all the cigarettes and lighters in your house. Have a plan for what you will do when you have the urge to smoke. Direct and second- hand smoke shortens your life as well as the lives of your family, friends and others around you. For your health and the health of those around you, please consider quitting! Proper Bending Body Mechanics: Maintain a wide stance with one foot slightly in front of the other. Keep your back straight. Bend utilizing the strength in your hips and knees. Do not bend at the waist. Maintain the lifted object at your waist-level close to your body. Avoid lifting weight that causes immediately pain or pain anywhere in the body afterwards. Smoking/Nicotine If there was ever one thing that you could do to increase your overall health, decrease your risk of cardiovascular problems by about 39% the second you make the choice, it is to STOP SMOKING. Your body's most instant gratification is the second you stop smoking. We have all heard the studies, read the articles but it is true, smoking is extremely bad for your overall health, and moreover it is detrimental to your bone health. Nicotine, IN ANY FORM, kills bone cells, prevents your body from healing fractures, and significantly prolongs healing after surgery. In spine surgery specifically, it increases your risk of not healing your bones to create a fusion and increases your risk of having a revision surgery due to this up to 60%. I know it is hard. I know it feels impossible. But there are ways. Take control of your life. We are here to help you through it. And when you are ready, ask us and we can direct you to help if you desire. Use the START Plan to Quit Smoking (please visit the Helpguide.org website listed below for more information): S = Set a quit date. Choose a date within the next 2 weeks, so you have enough time to prepare without losing your motivation to quit. If you mainly smoke at work, quit on the weekend, so you have a few days to adjust to the change. T = Tell family, friends, and co-workers that you plan to quit. Let your friends and family in on your plan to quit smoking and tell them you need their support and encouragement to stop. Look for a quit ivis who wants to stop smoking as well. You can help each other get through the rough times. A = Anticipate and plan for the challenges you'll face while quitting. Most people who begin smoking again do so within the first 3 months. You can help yourself make it through by preparing ahead for common challenges, such as nicotine withdrawal and cigarette cravings. R = Remove cigarettes and other tobacco products from your home, car, and work. Throw away all your cigarettes (no emergency pack!), lighters, ashtrays, and matches. Wash your clothes and freshen up anything that smells like smoke. Shampoo your car, clean your drapes and carpet, and steam your furniture. T = Talk to your doctor about getting help to quit. Your doctor can prescribe medication to help with withdrawal and suggest other alternatives. If you can't see a doctor, you can get many products over the counter at your local pharmacy or grocery store, including the nicotine patch, nicotine lozenges, and nicotine gum. Resources for Quitting Smoking: <https://www.[facility].gov/documents/united health services/Quit_Tobacco_Resources_for_patients_313480_7.pdf> Supplementation: Take recommended dosages of Vitamin D and Calcium to help fortify your bones and help them to heal. See your health maintenance packet for dosages and recommended levels. DVT/VTE prophylaxis: You will be given compression stockings from the hospital. Wear these daily for the first two weeks after surgery. You may take them off at night. You may be prescribed a medication to help thin your blood. Take this as directed. If you are not prescribed this medication, early and frequent ambulation has been shown to be the best prophylaxis to deep vein thrombosis and sequelae related to this event. Discharge Disposition: HOME SELF-CARE
== END 2024-06-18 11:15 | disposition home or self-care (01) | DRG 520 ==
LOC: EC 20:52 → OBSVTOIN 06-14 01:14 → 6NMEDSUR 06-14 01:14 → 5NMEDONC 06-14 01:31
PROVIDERS: ADMIT Internal Medicine; ATTEND Internal Medicine
PROC: 0SB40ZZ Excision of Lumbosacral Disc, Open Approach (ICD-10-PCS; principal; 2024-06-17 07:30)
DX: M51.17 Intervertebral disc disorders with radiculopathy, lumbosacral region (principal); D72.829 Elevated white blood cell count, unspecified; K76.0 Fatty (change of) liver, not elsewhere classified; K59.00 Constipation, unspecified; M48.07 Spinal stenosis, lumbosacral region; R74.01 Elevation of levels of liver transaminase levels; M47.27 Other spondylosis with radiculopathy, lumbosacral region; Z79.899 Other long term (current) drug therapy; Z82.49 Family history of ischemic heart disease and other diseases of the circulatory system; Z90.49 Acquired absence of other specified parts of digestive tract; Z98.1 Arthrodesis status
CPT/HCPCS: 36415; 72100; 72148; 74177; 80048; 80053; 80143; 80179; 81001; 81025; 83605; 83690; 85025; 96361; 96372; 96374; 96375; 96376; 99285

== ENCOUNTER → 2024-07-17 | Outpatient (CLI) | payer MEDICAID ==
[2024-07-17 14:49] LABS: HCT 38.8 % (37.2-46.3); HGB 12.4 g/dL (12.0-15.0); MCH 29.9 pg (27.0-32.0); MCV 93.5 FL (80.0-97.0); Mean Platelet Volume 9.6 FL (9.5-12.2); NRBC Per 100 WBC 0 X 10*3/uL (0.00-0.01); Platelet Count 380 X 10*3/uL (140-440); RBC 4.15 X 10*6/uL (4.10-5.20); RDW 12.6 % (11.5-14.5); WBC 13.48 X 10*3/uL (4.50-10.00)
[2024-07-17 14:50] LABS: Basophils # (A) 0.08 X 10*3/uL (0.00-0.10); Basophils % (A) 0.6 %; Eosinophils # (A) 0.27 X 10*3/uL (0.04-0.35); Lymphocytes # (A) 4.02 X 10*3/uL (0.90-5.00); Lymphocytes % (A) 29.8 %; Monocytes # (A) 1.07 X 10*3/uL (0.20-1.00); Monocytes % (A) 7.9 %; Neutrophils # (A) 7.95 X 10*3/uL (1.80-7.70)
[2024-07-17 14:56] LABS: ALT 19 U/L (8-44); AST 21 U/L (13-35); Albumin 4.2 g/dL (3.8-4.9); Albumin/Globulin Ratio 1.45 Ratio (1.60-3.17); Alkaline Phosphatase 59 U/L (41-126); BUN/Creat Ratio 24.17 Ratio (12.00-20.00); Blood Urea Nitrogen 14.5 mg/dL (9.0-27.0); Carbon Dioxide 23.5 mmol/L (21.6-31.8); Chloride 104 mmol/L (96-109); Globulin 2.9 g/dL (1.6-3.3); Glucose 88 mg/dL (70-110); Potassium 4.5 mmol/L (3.5-5.5); Sodium 137 mmol/L (135-145); Total Bilirubin 0.2 mg/dL (0.3-1.2); Total Protein 7.1 g/dL (6.2-8.2)
== END | disposition home or self-care (01) ==
LOC: LABMAIN 10:46
PROVIDERS: ATTEND Family Medicine
DX: D72.829 Elevated white blood cell count, unspecified (principal); R79.89 Other specified abnormal findings of blood chemistry
CPT/HCPCS: 80053; 85025